=== PATIENT | male | born 1950 | race Caucasian/White ===

== ENCOUNTER → 2018-01-26 | Outpatient (REF) | payer MEDICARE ==
[2018-01-26 17:28] LABS: ATYPICAL LYMPH 1 % (0-5); BANDS 1 % (< 11); LYMPHOCYTES 6 % (16-52); MONOCYTES 3 % (0-8); NEUTROPHILS 89 % (35-75)
[2018-01-26 17:30] LABS: PLATELET ESTIMATE NORMAL (NORMAL)
== END ==
LOC: M LAB REF 16:46
DX: D72.829 Elevated white blood cell count, unspecified (principal)
CPT/HCPCS: 85007

== ENCOUNTER → 2018-01-29 | Outpatient (REF) | payer MEDICARE | LOC: M LAB REF 10:34 | DX: J18.9 Pneumonia, unspecified organism (principal) | CPT/HCPCS: 86140 ==

== ENCOUNTER → 2018-02-05 | Outpatient (REF) | payer MEDICARE ==
[2018-02-05 19:31] LABS: C REACTIVE PROTEIN QUANTITATIV 1.34 MG/DL (0.00-0.30)
== END ==
LOC: M LAB REF 17:17
DX: J18.9 Pneumonia, unspecified organism (principal)
CPT/HCPCS: 86140

== ENCOUNTER 2020-03-31 08:05 | Inpatient (IN) | payer MEDICARE ==
[~2020-03-31] VITALS: Ht 172.7 cm; Wt 57.2 kg
[~2020-03-31 08:05] MED LIST: BABY81CH PO; DIFL200T; VITAMIN B12; VITAMIN C; XOPENEX; ZITH500T
[2020-03-31] MEDS ORDERED: LISI-538 PO (08:23)
[2020-03-31] MEDS ORDERED: HYDR12.55 PO (08:23)
[2020-03-31] MEDS ORDERED: BREO1INH3 PO (08:29)
[2020-03-31] MEDS ORDERED: PROAAER10 INH (08:29)
[2020-03-31] MEDS ORDERED: ACETAMINOPHEN 325 MG TAB PO ONE (08:30)
[2020-03-31] MEDS ORDERED: methylPREDNISolone 125MG 2ML VIAL IV ONE (08:30)
[2020-03-31] MEDS ORDERED: NS 500 ML IV ONE (08:30)
[2020-03-31] MEDS ORDERED: IPRATROPIUM 0.5MG/ALBUTEROL 2.5MG INH SOL UD 3ML (DUONEB) NEB PRN (08:45)
[2020-03-31 09:08] LABS: BASO # 0.1 10^3/uL (0.0-0.2); BASO % 0.4 % (0.0-1.0); HEMATOCRIT 48.1 % (42.0-52.0); HEMOGLOBIN 15.4 g/dl (13.5-17.5); LYMPH # 0.4 10^3/uL (1.5-5.0); LYMPH % 1.8 % (24.0-44.0); MEAN CORPUSCULAR HEMOGLOBIN 30.4 pg (27.0-33.0); MEAN CORPUSCULAR VOLUME 94.9 fl (80.0-96.0); MONO # 1.2 10^3/uL (0.0-0.8); NEUTROPHILS # 22.3 10^3/uL (1.5-8.5); NEUTROPHILS % 92.3 % (36.0-66.0); PLATELET COUNT, AUTOMATED 464 10^3/uL (150-450); RED BLOOD COUNT 5.07 10^6/uL (4.30-6.10); WHITE BLOOD COUNT 24.2 10^3/uL (4.0-10.0)
[2020-03-31] MEDS ORDERED: PIPERACILLIN/TAZOBACTAM SOD 4.5 GM in D5W MINI-BAG PLUS 50 ML IV ONE (09:15)
[2020-03-31 09:24] LABS: INR 1.04; PROTHROMBIN TIME 13.8 SECONDS (12.5-14.3)
--- NOTE | 2020-03-31 09:41 | REPVR ---
PROCEDURE INFORMATION: Exam: XR Chest, 1 View Exam date and time: 03/31/2020 9:20 AM Age: 69 years old Clinical indication: Cough and dyspnea; Additional info: Dyspnea/cough TECHNIQUE: Imaging protocol: XR of the chest Views: 1 view. COMPARISON: No relevant prior studies available. FINDINGS: Lungs: The lungs are hyperinflated. There are areas of scarring at the lung bases and right apex. There appears to be some superimposed airspace opacity at the left base, suggesting pneumonia. Pleural space: Unremarkable. No pleural effusion. No pneumothorax. Heart/Mediastinum: Unremarkable. No cardiomegaly. Bones/joints: Unremarkable. IMPRESSION: Hyperinflation with apparent left basilar airspace opacity, suggesting pneumonia. Electronically signed by: Demetris Amado On 03/31/2020 09:41:05 AM
[2020-03-31] MEDS ORDERED: NS 1,000 ML IV ONE (09:45)
[2020-03-31 09:47] LABS: ALBUMIN 2.8 GM/DL (3.2-5.2); BILIRUBIN,DIRECT 0.4 MG/DL (0.0-0.2); THYROID STIMULATING HORMONE 0.634 uIU/ML (0.358-3.740); TOTAL PROTEIN 7.6 GM/DL (6.4-8.2)
[2020-03-31] MEDS ORDERED: ACETAMINOPHEN TAB 650MG DOSE (2X325MG) PO PRN (10:30)
[2020-03-31] MEDS ORDERED: EQL50TAB2 PO (10:34)
[2020-03-31] MEDS ORDERED: CALC500T38 PO (10:34)
[2020-03-31] MEDS ORDERED: POTA10PO PO (10:34)
[2020-03-31] MEDS ORDERED: SILD100T PO (10:34)
[2020-03-31] MEDS ORDERED: B-COSUB2 SL (10:34)
[2020-03-31] MEDS ORDERED: BREO1INH INH (10:34)
[2020-03-31] MEDS ORDERED: ASPI1CHW3 PO (10:34)
[2020-03-31] MEDS ORDERED: ASPIRIN 81 MG CHEW TABLET PO SCH (11:30)
[2020-03-31] MEDS: NS 1,000 ML IV SCH ×2 (12:00→18:22)
[2020-03-31] MEDS: cefTRIAXone SOD 1 GM in D5W MINI-BAG PLUS 50 ML IV SCH (13:06)
--- NOTE | 2020-03-31 13:56 | HPEPDOC ---
[facility] Medical History & Physical Date of Admission Mar 31, 2020 Date of Service: Mar 31, 2020 Attending Physician: Lou Lora MD History and Physical CHIEF COMPLAINT: Increased shortness of breath HISTORY OF PRESENT ILLNESS: Patient is a 69-year-old male with past medical history of stage IV lung cancer (diagnosed 2008), history of pneumonia, Crohn's disease, hypertension who presented to [facility] today for worsening increased shortness of breath. Per the patient his symptoms started in 03/31 with increased productive coughing of clear thick sputum, lethargy, chest pressure with name, increased shortness of breath. Denies chest pain radiating down the arms, described as dull, associated with increased shortness of breath. The patient states he felt similarly many years ago when he was diagnosed with pneumonia. He denies feeling feverish, diarrhea, nausea, vomiting, abdominal pain, recent illnesses, significant weight loss. The patient also admits to having been diagnosed with stage IV lung cancer in 2008 but denied one and treatment. He called his primary care provider's office but was unable to get in to see them today. The patient came to the emergency room to be further evaluated for his symptoms. Emergency room the prior patient's oxygen level was 84% on room air. His placed on 2 L nasal cannula. WBC showed to be 24,000, respiratory rate 22, heart rate 109, 100.3 fever, 94% on 2 L nasal cannula. Chest x-ray showed left lower lobe pneumonia. The patient was admitted for community acquired left lower lobe pneumonia, sepsis. REVIEW OF SYSTEMS: CONSTITUTIONAL: Denies unexplained weight gain or weight loss,night sweats EYES: Denies eye drainage, eye pain, visual changes, dry/irritated eye EARS, NOSE, MOUTH, THROAT: Denies ringing in ears, mouth sores, loose teeth, sore throat, facial numbness or pain NECK: Denies swollen glands CARDIOVASCULAR: Denies irregular heartbeat, racing heart,swelling of feet or legs, pain in legs with walking RESPIRATORY: Denies night sweats, oxygen at home, coughing up blood GASTROINTESTINAL: Denies abdominal pain, constipation, bloody stool, diarrhea, heartburn, nausea, vomiting GENITOURINARY: Denies painful urination, bloody urine, frequent urination, urgency, leaking urine, impotence MUSCULOSKELETAL: Denies joint pain, muscle pain, leg swelling INTEGUMENTARY: Denies rash, itching, new skin lesion, change in existing skin lesion, hair loss or increase, breast changes. NEUROLOGICAL: Denies headaches, dizziness, difficulty walking, numbness or tingling PSYCHIATRIC: Denies depression, anxiety, recurrent bad thoughts, mood swings, hallucinations PAST MEDICAL HISTORY: 1. Stage 4 lung cancer, opted not to get it treated in 2008 2. History of pneumonia 3. Crohn's disease 4. HTN PAST SURGICAL HISTORY: 1. Abdominal surgery for Crohn's disease FAMILY HISTORY: MotherCAD, at 94 years old Otherlung cancer, at 67 years old SOCIAL HISTORY: Patient was a one pack per day smoker for 30 years, quit in 1996. Denies alcohol use. Lives in senior citizen housing locally. He does not use a walker or cane. He was previously on hospice from when he was diagnosed with cancer in 2008 through August 2009. He was doing well so he was released from hospice care. Does have a primary care provider in the local community ALLERGIES: Please see below. HOME MEDICATIONS: Please see below. PHYSICAL EXAMINATION: VS: Please see below CONSTITUTIONAL: No acute distress, resting comfortably, AAO x 3 EYES: PERRLA, EOM intact HENT, MOUTH: Normocephalic, atraumatic, moist mucous membranes, NC in place NECK: SUPPLE, no JVD, no lymphadenopathy, no carotid bruit CV: Regular rate and rhythm, S1S2 normal, no murmurs/rubs/gallops RESPIRATORY: Clear to auscultation bilaterally, no rales/rhonchi/wheezes GI: BS positive in 4 quadrants, soft, nontender, nondistended, no rebound or guarding, no organomegaly : Deferred MUSCULOSKELETAL: Normal ROM. No cyanosis, clubbing, swelling, joint deformity, extremity edema INTEGUMENTARY: Intact, no rashes, no lesions, no erythema NEUROLOGIC: Cranial Nerves II-XII are intact, no focal deficits PSYCHIATRIC: Mood and affect are normal LABORATORY DATA: Please see below IMAGING: CXR: Hyperinflation with apparent left basilar airspace opacity, suggesting pneumonia. ASSESSMENT: 69-year-old male with past medical history of stage IV lung cancer (diagnosed 2008), history of pneumonia, Crohn's disease, hypertension admitted for community acquired left lower lobe pneumonia, sepsis. PLAN: 1. LLL community acquired pneumonia, sepsis -HR 109, RR 22, temp 100.3 F, 94% on 2 L NC (has at home PRN but does not use ever), WBC 24K -CXR above -BCx, sputum cx pending. daily labs -Doxycycline, ceftriaxone BID -Tele 2. Hx of Stage IV lung cancer, type unknown -Declined treatment in 2008 -Previously on hospice but released in 2009 -F/u with PCP, does not wish to change DNR/DNI status 3. Crohn's disease -Stable 4. HTN. -STable 5. DVT px -Enoxaparin DISPOSITION: Plan is discharge home when medically improved. PT/OT. Vital Signs Vital Signs Date Time Temp Pulse Resp B/P (MAP) Pulse Ox O2 Delivery O2 Flow Rate FiO2 03/31/20 12:15 71 19 128/63 (84) 97 Nasal Cannula 2.0 03/31/20 10:01 98.7 Laboratory Data Labs 24H Laboratory Tests 2 03/31/20 08:37: Immature Granulocyte % (Auto) 0.5, Neutrophils (%) (Auto) 92.3H, Lymphocytes (%) (Auto) 1.8L, Monocytes (%) (Auto) 5.0, Eosinophils (%) (Auto) 0.0, Basophils (%) (Auto) 0.4, Neutrophils # (Auto) 22.3H, Lymphocytes # (Auto) 0.4L, Monocytes # (Auto) 1.2H, Eosinophils # (Auto) 0.0, Basophils # (Auto) 0.1, Nucleated Red Blood Cells % (auto) 0.0, Prothrombin Time 13.8, Prothromb Time International Ratio 1.04, Total Bilirubin 1.0, Direct Bilirubin 0.4H, Aspartate Amino Transf (AST/SGOT) 16, Alanine Aminotransferase (ALT/SGPT) 21, Alkaline Phosphatase 114, C-Reactive Protein, Quantitative 26.00H, TE-Nzp-L-Type Natriuretic Peptide 567H, Total Protein 7.6, Albumin 2.8L, Albumin/Globulin Ratio 0.6, Thyroid Stimulating Hormone (TSH) 0.634 03/31/20 08:48: POC pH (Misc Panel) 7.380, POC Base Excess (Misc Panel) 6.0H, POC Saturated Percent O2 (Misc) 93L, POC pO2 (Misc Panel) 69.0L, POC pCO2 (Misc Panel) 53.1H, POC HCO3 (Misc Panel) 31.4H, POC Total CO2 (Misc Panel) 33.0H 03/31/20 08:49: POC Total CO2 (Misc Panel) 29.0H, POC Glucose (Misc Panel) 147H, POC Sodium (Misc Panel) 140, POC Potassium (Misc Panel) 3.4L, POC Chloride (Misc Panel) 94L, POC Blood Urea Nitrogen (Misc Panel 16, POC Ionized Calcium (Misc Panel) 4.6, POC Lactate (Misc Panel) 1.79, POC Creatinine (Misc Panel) 0.9, POC Hematocrit (Misc Panel) 51.0 03/31/20 08:55: POC Troponin I (Misc) 0.00 03/31/20 11:19: Troponin I < 0.02 CBC/BMP Laboratory Tests 03/31/20 08:37 Microbiology Microbiology 03/31/20 Gram Stain - Final, Resulted 03/31/20 Sputum Culture, Resulted Pending 03/31/20 Blood Culture, Received Pending 03/31/20 Blood Culture, Received Pending Home Medications Scheduled Ascorbate Calcium (Vitamin C) 500 Mg Tablet, 500 MG PO DAILY Aspirin (Aspirin) 81 Mg Tab.chew, 81 MG PO 2XW DOES NOT TAKE ON SPECIFIC DAYS Fluticasone/Vilanterol (Breo Ellipta 100-25 Mcg INH) 1 Each Blst.w.dev, 1 PUFF INH DAILY Hydrochlorothiazide (Hydrochlorothiazide) 12.5 Mg Tablet, 12.5 MG PO DAILY Lisinopril (Lisinopril) 20 Mg Tablet, 20 MG PO BID Potassium Chloride (Potassium Chloride Powder) 20 Meq Packet, 20 MEQ PO DAILY Vit B2/Niacin/B6/B12/Dexpanth (B Complex Sublingual Liquid) 59 Ml Liquid, 1 DOSE SL BID Vitamin B Complex (Vitamin B Complex) 1 Each Tablet, 1 TAB PO DAILY Scheduled PRN Albuterol Sulfate (Proair Hfa) 8.5 Gm Hfa.aer.ad, 2 PUFF INH Q6H PRN for SHORTNESS OF BREATH Sildenafil Citrate (Sildenafil Citrate) 100 Mg Tablet, 0.5-1 TAB PO DAILY PRN for ERECTILE DYSFUNCTION Allergies Coded Allergies: No Known Allergies (Unverified , 03/31/20) A-FIB/CHADSVASC A-FIB History Current/History of A-Fib/PAF?: No Current PO Anticoag Therapy: No Age/Risk Factor Scoring CHADSVASC: CHADSVASC Response (Comments) Value Age Risk Factor Age 65-74 years old 1 Gender Risk Factor Male 0 Hx of CHF No 0 Hx of HTN Yes 1 Hx of Stroke/TIA/or VTE No 0 Hx of Diabetes No 0 Hx of Vascular Disease No 0 Total 2 Treatment Treatment ordered: Other Other anticoagulant ordered: enoxaparin Lou Lora MD Mar 31, 2020 13:56
[2020-03-31 16:00] VITALS: BP 160/79
[2020-03-31 16:13] VITALS: BP 160/79
[2020-03-31] MEDS: DOXYCYCLINE HYCLATE 100MG TABLET PO SCH ×2 (16:47→20:14)
[2020-03-31] MEDS: lisinopriL 20 MG TAB PO SCH ×2 (16:47→20:16)
[2020-03-31] MEDS: ASCORBIC ACID 500 MG TAB PO SCH (16:48)
[2020-03-31] MEDS: hydroCHLOROthiazide 12.5 MG CAPSULE PO SCH (16:48)
[2020-03-31] MEDS: ENOXAPARIN 40MG/0.4ML SYRINGE (J1650 PER 10MG) SC SCH (16:49)
[2020-03-31] MEDS: POTASSIUM CHL PWD 20 MEQ PACKET PO SCH (16:53)
[2020-03-31 19:39] LABS: APPEARANCE, URINE CLOUDY (CLEAR); BACTERIA, URINE AUTO NEGATIVE (NEGATIVE); BILIRUBIN, URINE AUTO NEGATIVE (NEGATIVE); BLOOD, URINE BLOOD NEGATIVE (NEGATIVE); COLOR, URINE YELLOW (YELLOW); GLUCOSE, URINE (UA) AUTO 2+ mg/dL (NEGATIVE); KETONE, URINE AUTO 1+ mg/dL (NEGATIVE); LEUKOCYTE ESTERASE, URINE AUTO NEGATIVE (NEGATIVE); MUCUS, URINE SMALL (NEGATIVE); NITRITE, URINE AUTO NEGATIVE (NEGATIVE); PROTEIN, URINE AUTO 2+ mg/dL (NEGATIVE); RBC, URINE AUTO 3 /HPF (0-3); SPECIFIC GRAVITY URINE AUTO 1.036 (1.002-1.035); SQUAMOUS EPITHELIAL CELL UR AU 0 /HPF (0-6); UROBILINOGEN, URINE AUTO 0.2 mg/dL (0.0-2.0); WBC, URINE AUTO 3 /HPF (0-3)
[2020-03-31 22:00] VITALS: BP 143/76
[2020-04-01] MEDS ORDERED: IPRATROPIUM 0.5MG/ALBUTEROL 2.5MG INH SOL UD 3ML (DUONEB) NEB PRN (01:15)
[2020-04-01] MEDS: NS 1,000 ML IV SCH ×2 (04:13→15:41)
--- NOTE | 2020-04-01 05:29 | ECGEPIP ---
[facility] - ED Test Date: 2020-03-31 Pat Name: WANDER GORMAN Department: Room: [facility] Gender: Male Lpn Cma: CHRISTOPHER : 1950 Requested By: GENESIS SWEET Order Number: [id number] Reading MD: Tramaine Benedict Measurements Intervals [place] Rate: 109 P: 87 IA: 157 QRS: 8 QRSD: 157 T: 140 QT: 349 QTc: 470 Interpretive Statements SINUS TACHYCARDIA LEFT BUNDLE BRANCH BLOCK NO PRIORS FOR COMPARISON Electronically Signed on 04-01-2020 5:29:36 EDT by Tramaine Benedict
[2020-04-01 06:13] LABS: HEMATOCRIT 36.2 % (42.0-52.0); HEMOGLOBIN 11.4 g/dl (13.5-17.5); MEAN CORPUSCULAR HEMOGLOBIN 30.3 pg (27.0-33.0); MEAN CORPUSCULAR HGB CONC 31.5 g/dl (32.0-36.5); MEAN CORPUSCULAR VOLUME 96.3 fl (80.0-96.0); PLATELET COUNT, AUTOMATED 334 10^3/uL (150-450); RED BLOOD COUNT 3.76 10^6/uL (4.30-6.10)
[2020-04-01 06:40] LABS: ALBUMIN 1.8 GM/DL (3.2-5.2); ALT/SGPT 15 U/L (12-78); BILIRUBIN,TOTAL 0.2 MG/DL (0.2-1.0); BLOOD UREA NITROGEN 16 MG/DL (7-18); CALCIUM LEVEL 8.4 MG/DL (8.8-10.2); CARBON DIOXIDE LEVEL 33 MEQ/L (21-32); CHLORIDE LEVEL 106 MEQ/L (98-107); CREATININE FOR GFR 0.75 MG/DL (0.70-1.30); GLOMERULAR FILTRATION RATE > 60.0 (>49); GLUCOSE, FASTING 176 MG/DL (70-100); POTASSIUM SERUM 3.6 MEQ/L (3.5-5.1); SODIUM LEVEL 144 MEQ/L (136-145); TOTAL PROTEIN 5.3 GM/DL (6.4-8.2)
[2020-04-01] MEDS: ENOXAPARIN 40MG/0.4ML SYRINGE (J1650 PER 10MG) SC SCH (09:50)
[2020-04-01] MEDS: POTASSIUM CHL PWD 20 MEQ PACKET PO SCH (09:50)
[2020-04-01] MEDS: hydroCHLOROthiazide 12.5 MG CAPSULE PO SCH (09:51)
[2020-04-01] MEDS: ASCORBIC ACID 500 MG TAB PO SCH (09:51)
[2020-04-01] MEDS: lisinopriL 20 MG TAB PO SCH ×2 (09:53→21:26)
[2020-04-01] MEDS: DOXYCYCLINE HYCLATE 100MG TABLET PO SCH ×2 (09:53→21:26)
[2020-04-01] MEDS: cefTRIAXone SOD 1 GM in D5W MINI-BAG PLUS 50 ML IV SCH (11:55)
[2020-04-01 14:00] VITALS: BP 145/72
--- NOTE | 2020-04-01 17:21 | IPNPDOC ---
Date Seen The patient was seen on 04/01/20. Progress Note SUBJECTIVE: Speech therapy recommended soft diet, thin liquids. Was assessed by PT and was safe to return home, not recommending rehab. WBC mildly improved, awaiting sputum cx. Denies chest pain, n/v/d, fevers, chills, increased SOB. OBJECTIVE: PHYSICAL EXAMINATION: VS: Please see below CONSTITUTIONAL: No acute distress, resting comfortably, AAO x 3 EYES: PERRLA, EOM intact HENT, MOUTH: Normocephalic, atraumatic, moist mucous membranes, NC in place NECK: SUPPLE, no JVD, no lymphadenopathy, no carotid bruit CV: Regular rate and rhythm, S1S2 normal, no murmurs/rubs/gallops RESPIRATORY: Clear to auscultation bilaterally, no rales/rhonchi/wheezes GI: BS positive in 4 quadrants, soft, nontender, nondistended, no rebound or guarding, no organomegaly : Deferred MUSCULOSKELETAL: Normal ROM. No cyanosis, clubbing, swelling, joint deformity, extremity edema INTEGUMENTARY: Intact, no rashes, no lesions, no erythema NEUROLOGIC: Cranial Nerves II-XII are intact, no focal deficits PSYCHIATRIC: Mood and affect are normal LABORATORY DATA: Please see below MICROBIOLOGY: BCx NG at 24 H x 2 sets Sputum Cx pending IMAGING: CXR: Hyperinflation with apparent left basilar airspace opacity, suggesting pneumonia. ASSESSMENT: 69-year-old male with past medical history of stage IV lung cancer (diagnosed 2008), history of pneumonia, Crohn's disease, hypertension admitted for community acquired left lower lobe pneumonia, sepsis. PLAN: LLL community acquired pneumonia, resolved sepsis -91% on 1 L NC (has at home PRN but rarely uses), WBC 14K -CXR above -BCx NG at 24H, sputum cx pending. -F/u daily labs -Doxycycline, ceftriaxone (Day 2) Dysphagia 2/2 to unknown cause -Speech evaluated today, recommending soft diet, thin liquids -Barium swallow for 04/03/20. Hx of Stage IV lung cancer, type unknown -Declined treatment in 2008 -Previously on hospice but released in 2009 -F/u with PCP, does not wish to change DNR/DNI status Crohn's disease -Stable HTN. -STable DVT px -Enoxaparin DISPOSITION: Currently inpatient status. PT/OT: cleared safe for d/c home when medically safe to return home. VS, I&O, 24H, Marinobone Vital Signs/I&O Vital Signs Date Time Temp Pulse Resp B/P (MAP) Pulse Ox O2 Delivery O2 Flow Rate FiO2 04/01/20 09:53 146/84 04/01/20 09:15 1.0 03/31/20 22:00 96.4 71 18 91 Nasal Cannula I&O- Last 24 Hours up to 6 AM 04/01/20 06:00 Intake Total 2830 ml Output Total 0 ml Balance 2830 ml Laboratory Data 24H LABS Laboratory Tests 2 03/31/20 19:17: Urine Color YELLOW, Urine Appearance CLOUDYH, Urine pH 5.0, Urine Specific [place] 1.036, Urine Protein 2+H, Urine Glucose (Auto)(UA) 2+H, Urine Ketones (Auto) 1+H, Urine Blood NEGATIVE, Urine Nitrite NEGATIVE, Urine Bilirubin NEGATIVE, Urine Urobilinogen 0.2, Urine Leukocyte Esterase (Auto) NEGATIVE, Urine WBC (Auto) 3, Urine RBC (Auto) 3, Urine Hyaline Casts (Auto) 1, Urine Bacteria (Auto) NEGATIVE, Urine Squamous Epithelial Cells 0, Urine Mucus (Auto) SMALL, Urine Sperm (Auto) 04/01/20 05:52: Nucleated Red Blood Cells % (auto) 0.0, Anion Gap 5L, Glomerular Filtration Rate > 60.0, Calcium Level 8.4L, Total Bilirubin 0.2#, Aspartate Amino Transf (AST/SGOT) 10, Alanine Aminotransferase (ALT/SGPT) 15, Alkaline Phosphatase 77, Total Protein 5.3#L, Albumin 1.8#L, Albumin/Globulin Ratio 0.5 CBC/BMP Laboratory Tests 04/01/20 05:52 Microbiology Microbiology 03/31/20 Urine Culture, Received Pending 03/31/20 Gram Stain - Final, Resulted 03/31/20 Sputum Culture, Resulted Pending 03/31/20 Blood Culture - Preliminary, Resulted No growth after 24 hours . All specim... 03/31/20 Blood Culture - Preliminary, Resulted No growth after 24 hours . All specim... Current Medications Current Medications Medications (Trade) Dose Ordered Sig/Tyra Route PRN Reason Start Time Stop Time Status Last Admin Dose Admin Acetaminophen (Tylenol Tab) 650 mg Q4H PRN PO PAIN OR FEVER 10/20/20 10:30 Albuterol/ Ipratropium (Duoneb (Ipr 0.5mg/Alb 2.5mg)) 3 ml Q20M PRN NEB SHORTNESS OF BREATH 03/31/20 08:45 04/01/20 01:05 DC 03/31/20 09:06 Albuterol/ Ipratropium (Duoneb (Ipr 0.5mg/Alb 2.5mg)) 3 ml Q4HP PRN NEB SOB/WHEEZING 04/01/20 01:15 Ascorbic Acid (Vitamin C) 500 mg DAILY PO 03/31/20 09:00 04/01/20 09:51 Aspirin (Aspirin Chewable) 81 mg 2XW PO 03/31/20 11:30 03/31/20 12:15 DC Ceftriaxone Sodium 1 gm/ Dextrose 50 ml @ 100 mls/hr Q24H IV 03/31/20 12:00 04/01/20 11:55 Doxycycline Hyclate (Vibramycin) 100 mg BID PO 03/31/20 09:00 04/01/20 09:53 Enoxaparin Sodium (Lovenox) 40 mg DAILY SC 03/31/20 09:00 04/01/20 09:50 Home Med (Med Rec Complete!) ASDIRECTED XX 03/31/20 10:45 03/31/20 10:37 DC Hydrochlorothiazide (Hydrodiuril) 12.5 mg DAILY PO 03/31/20 09:00 04/01/20 09:51 Lisinopril (Prinivil) 20 mg BID PO 03/31/20 09:00 04/01/20 09:53 Potassium Chloride (K-Kayla 20 Meq Powder Packet) 20 meq DAILY PO 03/31/20 09:00 04/01/20 09:50 Sodium Chloride 1,000 ml @ 100 mls/hr Q10H IV 03/31/20 10:30 04/01/20 15:41 Allergies Coded Allergies: No Known Allergies (Unverified , 03/31/20) Lou Lora MD Apr 01, 2020 17:21
[2020-04-01 22:00] VITALS: BP 147/73
[2020-04-02] MEDS: NS 1,000 ML IV SCH (01:20)
[2020-04-02 05:58] LABS: HEMATOCRIT 43.1 % (42.0-52.0); HEMOGLOBIN 13.3 g/dl (13.5-17.5); MEAN CORPUSCULAR HEMOGLOBIN 30.1 pg (27.0-33.0); MEAN CORPUSCULAR HGB CONC 30.9 g/dl (32.0-36.5); MEAN CORPUSCULAR VOLUME 97.5 fl (80.0-96.0); RED BLOOD COUNT 4.42 10^6/uL (4.30-6.10); WHITE BLOOD COUNT 14.7 10^3/uL (4.0-10.0)
[2020-04-02 06:00] VITALS: BP 130/81
[2020-04-02 06:03] LABS: PLATELET COUNT, AUTOMATED 451 10^3/uL (150-450)
[2020-04-02 06:30] LABS: ALBUMIN 2.1 GM/DL (3.2-5.2); ALT/SGPT 22 U/L (12-78); BILIRUBIN,TOTAL 0.3 MG/DL (0.2-1.0); BLOOD UREA NITROGEN 14 MG/DL (7-18); CALCIUM LEVEL 8.5 MG/DL (8.8-10.2); CARBON DIOXIDE LEVEL 35 MEQ/L (21-32); CHLORIDE LEVEL 108 MEQ/L (98-107); CREATININE FOR GFR 0.78 MG/DL (0.70-1.30); GLOMERULAR FILTRATION RATE > 60.0 (>49); GLUCOSE, FASTING 98 MG/DL (70-100); POTASSIUM SERUM 3.5 MEQ/L (3.5-5.1); SODIUM LEVEL 148 MEQ/L (136-145)
[2020-04-02] MEDS ORDERED: LevoFLOXacin 500 MG TABLET PO SCH (08:30)
[2020-04-02] MEDS: hydroCHLOROthiazide 12.5 MG CAPSULE PO SCH (10:06)
[2020-04-02] MEDS: ASCORBIC ACID 500 MG TAB PO SCH (10:07)
[2020-04-02] MEDS: POTASSIUM CHL PWD 20 MEQ PACKET PO SCH (10:07)
[2020-04-02] MEDS: LevoFLOXacin 750 MG TABLET PO SCH (10:07)
[2020-04-02] MEDS: lisinopriL 20 MG TAB PO SCH ×2 (10:08→20:06)
[2020-04-02] MEDS: ENOXAPARIN 40MG/0.4ML SYRINGE (J1650 PER 10MG) SC SCH ×2 (10:08→10:13)
[2020-04-02 14:00] VITALS: BP 130/73
--- NOTE | 2020-04-02 17:00 | IPNPDOC ---
Date Seen The patient was seen on 04/02/20. Progress Note SUBJECTIVE: Tolerating soft diet, thin liquids well. Does not want cookie swallow 04/03. Awaiting sputum cx still. WBC mildly increased. Patient requesting Hospice care. Denies chest pain, n/v/d, fevers, chills, increased SOB. OBJECTIVE: PHYSICAL EXAMINATION: VS: Please see below CONSTITUTIONAL: Appears more SOB today but not in resp distress. At times tearful, AAO x 3 EYES: PERRLA, EOM intact HENT, MOUTH: Normocephalic, atraumatic, moist mucous membranes, NC in place NECK: SUPPLE, no JVD, no lymphadenopathy, no carotid bruit CV: Regular rate and rhythm, S1S2 normal, no murmurs/rubs/gallops RESPIRATORY: Clear to auscultation bilaterally, no rales/rhonchi/wheezes GI: BS positive in 4 quadrants, soft, nontender, nondistended, no rebound or guarding, no organomegaly : Deferred MUSCULOSKELETAL: Normal ROM. No cyanosis, clubbing, swelling, joint deformity, extremity edema INTEGUMENTARY: Intact, no rashes, no lesions, no erythema NEUROLOGIC: Cranial Nerves II-XII are intact, no focal deficits PSYCHIATRIC: Depressed mood LABORATORY DATA: Please see below MICROBIOLOGY: BCx NG at 24 H x 2 sets Sputum Cx: Organism 1 RAOULTELLA PLANTICOLA QUANTITY OF GROWTH FEW Organism 2 STREPTOCOCCUS PNEUMONIAE QUANTITY OF GROWTH HEAVY IMAGING: CXR: Hyperinflation with apparent left basilar airspace opacity, suggesting pneumonia. ASSESSMENT: 69-year-old male with past medical history of stage IV lung cancer (diagnosed 2008), history of pneumonia, Crohn's disease, hypertension admitted for community acquired left lower lobe pneumonia, sepsis. PLAN: LLL community acquired pneumonia, resolved sepsis -88-91% on 1 L NC (has at home PRN but rarely uses), WBC slightly worsened at 14.7 -BCx NG at 24H, sputum cx above, sensitivities to strep pneumoniae pending -F/u daily labs -D/c Doxycycline, ceftriaxone. Started levofloxacin for now, october when sensitivities for strep pneumo arrive. Dysphagia 2/2 to unknown cause -Speech evaluated today, recommending soft diet, thin liquids -Refusing barium swallow -Crush pills Hx of Stage IV lung cancer, type unknown -Declined treatment in 2008 -Previously on hospice but released in 2009 -F/u with PCP, does not wish to change DNR/DNI status -Requesting Hospice care Crohn's disease -Stable HTN. -STable DVT px -Enoxaparin DISPOSITION: Currently inpatient status. PT/OT: cleared safe for d/c home when medically safe to return home. REquesting Hospice Care. Plan is hopefully d/c home with Hospice. VS, I&O, 24H, Fishbone Vital Signs/I&O Vital Signs Date Time Temp Pulse Resp B/P (MAP) Pulse Ox O2 Delivery O2 Flow Rate FiO2 04/02/20 14:00 98.5 100 24 130/73 (92) 88 Nasal Cannula 1.0 I&O- Last 24 Hours up to 6 AM 04/02/20 06:00 Intake Total 4010 ml Output Total 400 ml Balance 3610 ml Laboratory Data 24H LABS Laboratory Tests 2 04/02/20 05:48: Nucleated Red Blood Cells % (auto) 0.0, Anion Gap 5L, Glomerular Filtration Rate > 60.0, Calcium Level 8.5L, Total Bilirubin 0.3, Aspartate Amino Transf (AST/SGOT) 16, Alanine Aminotransferase (ALT/SGPT) 22, Alkaline Phosphatase 89, Total Protein 6.0L, Albumin 2.1L, Albumin/Globulin Ratio 0.5 04/02/20 06:52: Lab Scanned Report Miscellaneous Lab CBC/BMP Laboratory Tests 04/02/20 05:48 Microbiology Microbiology 03/31/20 Urine Culture - Final, Complete 03/31/20 Gram Stain - Final, Resulted 03/31/20 Sputum Culture - Preliminary, Resulted Raoultella [place] Streptococcus Pneumoniae 03/31/20 Blood Culture - Preliminary, Resulted No Growth after 48 hours. All Specime... 03/31/20 Blood Culture - Preliminary, Resulted No Growth after 48 hours. All Specime... Current Medications Current Medications Medications (Trade) Dose Ordered Sig/Tyra Route PRN Reason Start Time Stop Time Status Last Admin Dose Admin Acetaminophen (Tylenol Tab) 650 mg Q4H PRN PO PAIN OR FEVER 03/31/20 10:30 Albuterol/ Ipratropium (Duoneb (Ipr 0.5mg/Alb 2.5mg)) 3 ml Q20M PRN NEB SHORTNESS OF BREATH 03/31/20 08:45 04/01/20 01:05 DC 03/31/20 09:06 Albuterol/ Ipratropium (Duoneb (Ipr 0.5mg/Alb 2.5mg)) 3 ml Q4HP PRN NEB SOB/WHEEZING 04/01/20 01:15 Ascorbic Acid (Vitamin C) 500 mg DAILY PO 03/31/20 09:00 04/02/20 10:07 Aspirin (Aspirin Chewable) 81 mg 2XW PO 03/31/20 11:30 03/31/20 12:15 DC Ceftriaxone Sodium 1 gm/ Dextrose 50 ml @ 100 mls/hr Q24H IV 03/31/20 12:00 04/02/20 08:31 DC 04/01/20 11:55 Doxycycline Hyclate (Vibramycin) 100 mg BID PO 03/31/20 09:00 04/02/20 08:31 DC 04/01/20 21:26 Enoxaparin Sodium (Lovenox) 40 mg DAILY SC 03/31/20 09:00 04/01/20 09:50 Home Med (Med Rec Complete!) ASDIRECTED XX 03/31/20 10:45 03/31/20 10:37 DC Hydrochlorothiazide (Hydrodiuril) 12.5 mg DAILY PO 03/31/20 09:00 04/02/20 10:06 Levofloxacin (Levaquin) 500 mg DAILY@06 PO 04/02/20 08:30 04/02/20 08:49 DC Levofloxacin (Levaquin) 750 mg DAILY@06 PO 04/02/20 06:00 04/02/20 10:07 Lisinopril (Prinivil) 20 mg BID PO 03/31/20 09:00 04/02/20 10:08 Potassium Chloride (K-Kayla 20 Meq Powder Packet) 20 meq DAILY PO 03/31/20 09:00 04/02/20 10:07 Sodium Chloride 1,000 ml @ 100 mls/hr Q10H IV 03/31/20 10:30 04/02/20 08:23 DC 04/02/20 01:20 Allergies Coded Allergies: No Known Allergies (Unverified , 03/31/20) Lou Lora MD Apr 02, 2020 17:00
[2020-04-02 22:00] VITALS: BP 155/85
[2020-04-03] MEDS: LevoFLOXacin 750 MG TABLET PO SCH (05:45)
[2020-04-03 06:00] VITALS: BP 153/84
[2020-04-03 06:13] LABS: HEMATOCRIT 41.6 % (42.0-52.0); HEMOGLOBIN 12.8 g/dl (13.5-17.5); MEAN CORPUSCULAR HEMOGLOBIN 30.5 pg (27.0-33.0); MEAN CORPUSCULAR HGB CONC 30.8 g/dl (32.0-36.5); PLATELET COUNT, AUTOMATED 401 10^3/uL (150-450)
[2020-04-03 06:34] LABS: ALBUMIN 2.3 GM/DL (3.2-5.2); ALT/SGPT 22 U/L (12-78); BILIRUBIN,TOTAL 0.4 MG/DL (0.2-1.0); BLOOD UREA NITROGEN 9 MG/DL (7-18); CALCIUM LEVEL 8.6 MG/DL (8.8-10.2); CARBON DIOXIDE LEVEL 39 MEQ/L (21-32); CHLORIDE LEVEL 102 MEQ/L (98-107); GLOMERULAR FILTRATION RATE > 60.0 (>49); GLUCOSE, FASTING 82 MG/DL (70-100); POTASSIUM SERUM 3.7 MEQ/L (3.5-5.1); SODIUM LEVEL 145 MEQ/L (136-145); TOTAL PROTEIN 5.9 GM/DL (6.4-8.2)
--- NOTE | 2020-04-03 07:59 | ECGEPIP ---
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 Left bundle branch block Slower rate with less marked repolarization abnormality from earlier the same day Electronically Signed on 04-03-2020 7:59:29 EDT by Yared Cardenas
[2020-04-03] MEDS ORDERED: LEVO750T13 PO (08:28)
[2020-04-03] MEDS: ENOXAPARIN 40MG/0.4ML SYRINGE (J1650 PER 10MG) SC SCH (08:56)
[2020-04-03 08:57] VITALS: BP 169/96
[2020-04-03] MEDS: POTASSIUM CHL PWD 20 MEQ PACKET PO SCH (08:57)
[2020-04-03] MEDS: lisinopriL 20 MG TAB PO SCH (08:57)
[2020-04-03] MEDS: ASCORBIC ACID 500 MG TAB PO SCH (08:57)
[2020-04-03] MEDS: hydroCHLOROthiazide 12.5 MG CAPSULE PO SCH (08:57)
--- NOTE | 2020-04-03 17:49 | DS.PDOC ---
Discharge Summary General Date of Admission Mar 31, 2020 at 10:19 Date of Discharge 04/03/20 Attending Physician: Lou Lora MD Discharge Summary HISTORY OF PRESENT ILLNESS: Patient is a 69-year-old male with past medical history of stage IV lung cancer (diagnosed 2008), history of pneumonia, Crohn's disease, hypertension who presented to [facility] today for worsening increased shortness of breath. Per the patient his symptoms started in 03/31 with increased productive coughing of clear thick sputum, lethargy, chest pressure with name, increased shortness of breath. Denies chest pain radiating down the arms, described as dull, associated with increased shortness of breath. The patient states he felt similarly many years ago when he was diagnosed with pneumonia. He denies feeling feverish, diarrhea, nausea, vomiting, abdominal pain, recent illnesses, significant weight loss. The patient also admits to having been diagnosed with stage IV lung cancer in 2008 but denied one and treatment. He called his primary care provider's office but was unable to get in to see them today. The patient came to the emergency room to be further evaluated for his sy mptoms. Emergency room the prior patient's oxygen level was 84% on room air. His placed on 2 L nasal cannula. WBC showed to be 24,000, respiratory rate 22, heart rate 109, 100.3 fever, 94% on 2 L nasal cannula. Chest x-ray showed left lower lobe pneumonia. The patient was admitted for community acquired left lower lobe pneumonia, sepsis. HOSPITAL COURSE: The patient was continued on CAP treatment CA: However, it was noted that his WBC increased. Culture later came back growing 2 different organisms 1 which was majority of strep pneumonia. WBC later improved to 11,000, he remained 90% on 2 L nasal cannula. The patient had home oxygen as needed for his lung cancer previously but rarely used it. Blood cultures showed to be no growth. He had a swelling evaluation which recommended a soft diet with thin liquids. He did not wish to proceed further with a cookie swallow. The patient wanted to follow-up with hospice as outpatient. He was given the information to do so. By 04/03/2020 the patient appeared to be much improved and was to continue with an oral levofloxacin for 6 additional days. He has follow-up with both his primary care provider and hospice after discharge. Portable oxygen was arranged by social work. The patient denied chest pain, increased shortness of breath, nausea, vomiting, fevers, chills at the time of discharge. REVIEW OF SYSTEMS: Neg except mentioned above PAST MEDICAL HISTORY: 1. Stage 4 lung cancer, opted not to get it treated in 2008 2. History of pneumonia 3. Crohn's disease 4. HTN PAST SURGICAL HISTORY: 1. Abdominal surgery for Crohn's disease FAMILY HISTORY: MotherCAD, at 94 years old Otherlung cancer, at 67 years old SOCIAL HISTORY: Patient was a one pack per day smoker for 30 years, quit in 1996. Denies alcohol use. Lives in senior citizen housing locally. He does not use a walker or cane. He was previously on hospice from when he was diagnosed with cancer in 2008 through August 2009. He was doing well so he was released from hospice care. Does have a primary care provider in the local community ALLERGIES: Please see below. DISCHARGE MEDICATIONS: Please see below. PHYSICAL EXAMINATION: VS: Please see below CONSTITUTIONAL: In NAD, sitting up at edge of bed, AAO x 3 EYES: PERRLA, EOM intact HENT, MOUTH: Normocephalic, atraumatic, moist mucous membranes, NC in place NECK: SUPPLE, no JVD, no lymphadenopathy, no carotid bruit CV: Regular rate and rhythm, S1S2 normal, no murmurs/rubs/gallops RESPIRATORY: Clear to auscultation bilaterally, no rales/rhonchi/wheezes GI: BS positive in 4 quadrants, soft, nontender, nondistended, no rebound or guarding, no organomegaly : Deferred MUSCULOSKELETAL: Normal ROM. No cyanosis, clubbing, swelling, joint deformity, extremity edema INTEGUMENTARY: Intact, no rashes, no lesions, no erythema NEUROLOGIC: Cranial Nerves II-XII are intact, no focal deficits PSYCHIATRIC: Mood and affect appropriate LABORATORY DATA: Please see below MICROBIOLOGY: BCx NG at 24 H x 2 sets Sputum Cx: Organism 1 RAOULTELLA PLANTICOLA QUANTITY OF GROWTH FEW Organism 2 STREPTOCOCCUS PNEUMONIAE QUANTITY OF GROWTH HEAVY IMAGING: CXR: Hyperinflation with apparent left basilar airspace opacity, suggesting pneumonia. ASSESSMENT: 69-year-old male with past medical history of stage IV lung cancer (diagnosed 2008), history of pneumonia, Crohn's disease, hypertension admitted for community acquired left lower lobe pneumonia, sepsis. PLAN: LLL community acquired pneumonia, resolved sepsis -88-91% on 2 L NC ATC required for discharge, portable O2 arranged. WBC wnl -BCx NG at 24H, sputum cx above -Patient to continue with 6 additional days of levofloxacin after discharge. Dysphagia 2/2 to unknown cause -Speech evaluated today, recommending soft diet, thin liquids -Refusing barium swallow -Crush pills -F/u with PCP Hx of Stage IV lung cancer, type unknown -Declined treatment in 2008 -Previously on hospice but released in 2009 -F/u with PCP, does not wish to change DNR/DNI status -Hospice to evaluate patient o/p Crohn's disease -Stable HTN. -STable DISPOSITION: D/nicole home with f/u with hospice, PCP TIME SPENT ON DISCHARGE: Greater than 30 minutes. Vital Signs/I&Os Vital Signs Date Time Temp Pulse Resp B/P (MAP) Pulse Ox O2 Delivery O2 Flow Rate FiO2 04/03/20 09:00 2.0 04/03/20 08:57 169/96 04/03/20 06:00 97.3 81 22 90 Nasal Cannula I&O- Last 24 Hours up to 6 AM 04/03/20 06:00 Intake Total 1620 ml Output Total 800 ml Balance 820 ml Laboratory Data Labs 24H Laboratory Tests 2 04/03/20 05:50: Nucleated Red Blood Cells % (auto) 0.0, Anion Gap 4L, Glomerular Filtration Rate > 60.0, Calcium Level 8.6L, Total Bilirubin 0.4, Aspartate Amino Transf (AST/SGOT) 17, Alanine Aminotransferase (ALT/SGPT) 22, Alkaline Phosphatase 79, Total Protein 5.9L, Albumin 2.3L, Albumin/Globulin Ratio 0.6 CBC/BMP Laboratory Tests 04/03/20 05:50 Microbiology Microbiology 03/31/20 Urine Culture - Final, Complete 03/31/20 Gram Stain - Final, Complete 03/31/20 Sputum Culture - Final, Complete Raoultella Planticola Streptococcus Pneumoniae 03/31/20 Blood Culture - Preliminary, Resulted No Growth after 72 hours. All specime... 03/31/20 Blood Culture - Preliminary, Resulted No Growth after 72 hours. All specime... Discharge Medications Scheduled Ascorbate Calcium (Vitamin C) 500 Mg Tablet, 500 MG PO DAILY, (Reported) Aspirin (Aspirin) 81 Mg Tab.chew, 81 MG PO 2XW, (Reported) DOES NOT TAKE ON SPECIFIC DAYS Fluticasone/Vilanterol (Breo Ellipta 100-25 Mcg INH) 1 Each Blst.w.dev, 1 PUFF INH DAILY, (Reported) Hydrochlorothiazide (Hydrochlorothiazide) 12.5 Mg Tablet, 12.5 MG PO DAILY, (Reported) Levofloxacin (Levofloxacin) 750 Mg Tablet, 750 MG PO DAILY@06 Lisinopril (Lisinopril) 20 Mg Tablet, 20 MG PO BID, (Reported) Potassium Chloride (Potassium Chloride Powder) 20 Meq Packet, 20 MEQ PO DAILY, (Reported) Vit B2/Niacin/B6/B12/Dexpanth (B Complex Sublingual Liquid) 59 Ml Liquid, 1 DOSE SL BID, (Reported) Vitamin B Complex (Vitamin B Complex) 1 Each Tablet, 1 TAB PO DAILY, (Reported) Scheduled PRN Albuterol Sulfate (Proair Hfa) 8.5 Gm Hfa.aer.ad, 2 PUFF INH Q6H PRN for SHORTNESS OF BREATH, (Reported) Sildenafil Citrate (Sildenafil Citrate) 100 Mg Tablet, 0.5-1 TAB PO DAILY PRN for ERECTILE DYSFUNCTION, (Reported) Allergies Coded Allergies: No Known Allergies (Unverified , 03/31/20) Lou Lora MD Apr 03, 2020 17:49
== END 2020-04-03 16:05 | disposition home or self-care (01) | DRG 871 ==
LOC: M ED 08:05 → EDBD 08:05 → M ED INP 10:19 → M MSPAV 16:06
PROVIDERS: ADMIT Internal Medicine; ATTEND Internal Medicine
DX: A41.9 Sepsis, unspecified organism (principal); J13 Pneumonia due to Streptococcus pneumoniae; K50.90 Crohn's disease, unspecified, without complications; I10 Essential (primary) hypertension; R13.10 Dysphagia, unspecified; Z85.118 Personal history of other malignant neoplasm of bronchus and lung; Z87.891 Personal history of nicotine dependence; Z79.82 Long term (current) use of aspirin; Z79.899 Other long term (current) drug therapy

== ENCOUNTER 2023-01-20 18:39 | Inpatient (IN) | payer MEDICARE ==
[~2023-01-20] VITALS: Ht 170.2 cm; Wt 57.8 kg
[~2023-01-20 18:39] MED LIST changes: +ASPI-655 PO; +B-COSUB2 SL; +BREO1INH INH; +BREO1INH3 PO; +CALC500T38 PO; +EQL50TAB2 PO; +HYDR12.55 PO; +LEVO1TAB40 PO; +LISI20TA33 PO; +POTA10PO PO; +PROAAER10 INH; +SILD100T PO
[2023-01-20] MEDS ORDERED: ACETAMINOPHEN TAB 650MG DOSE (2X325MG) PO ONE (22:05)
[2023-01-21] MEDS ORDERED: PERCOCET 5MG/325MG TAB PO ONE (00:05)
[2023-01-21] MEDS ORDERED: POTA10LI10 PO (02:19)
[2023-01-21] MEDS ORDERED: [UNRECOGNIZED DRUG - OTHER] PO (02:19)
[2023-01-21] MEDS ORDERED: HOME MED LIST COMPLETE! XX SCH (02:20)
[2023-01-21] MEDS ORDERED: ONDANSETRON 4MG 2ML VIAL IV PRN ×2 (02:45→20:55)
[2023-01-21] MEDS: NS 1,000 ML IV SCH ×2 (02:45→14:57)
[2023-01-21] MEDS ORDERED: ALBUTEROL SULFATE 2.5MG/0.5ML INH NEB SOLN NEB PRN (02:45)
[2023-01-21 02:58] LABS: BASO % 0.2 % (0.0-1.0); EOS % 0.2 % (0.0-3.0); HEMOGLOBIN 12.5 g/dl (13.5-17.5); LYMPH # 0.7 10^3/uL (1.5-5.0); LYMPH % 4.4 % (24.0-44.0); MEAN CORPUSCULAR HEMOGLOBIN 30.7 pg (27.0-33.0); MEAN CORPUSCULAR HGB CONC 32.1 g/dl (32.0-36.5); MEAN CORPUSCULAR VOLUME 95.8 fl (80.0-96.0); MONO # 0.5 10^3/uL (0.0-0.8); NEUTROPHILS # 13.7 10^3/uL (1.5-8.5); NEUTROPHILS % 91.7 % (36.0-66.0); PLATELET COUNT, AUTOMATED 317 10^3/uL (150-450); RED BLOOD COUNT 4.07 10^6/uL (4.30-6.10); WHITE BLOOD COUNT 14.9 10^3/uL (4.0-10.0)
[2023-01-21 03:09] LABS: INR 0.98; PROTHROMBIN TIME 12.7 SECONDS (12.5-14.5)
[2023-01-21 03:10] LABS: PARTIAL THROMBOPLASTIN TIME 29.1 SECONDS (24.8-34.2)
[2023-01-21 03:22] LABS: BLOOD UREA NITROGEN 16 MG/DL (9-23); CALCIUM LEVEL 8.2 MG/DL (8.3-10.6); CARBON DIOXIDE LEVEL 33 MMOL/L (20-31); CHLORIDE LEVEL 102 MMOL/L (98-107); CREATININE FOR GFR 0.71 MG/DL (0.70-1.30); GLOMERULAR FILTRATION RATE > 60.0 (>42); GLUCOSE, FASTING 126 MG/DL (74-106); POTASSIUM SERUM 4.3 MMOL/L (3.5-5.1); SODIUM LEVEL 142 MMOL/L (136-145)
[2023-01-21] MEDS: HYDROMORPHONE HCL 0.5 MG/ 0.5 ML SYRINGE IV PRN ×3 (07:35→14:30)
[2023-01-21] MEDS: ADVAIR HFA 115/21MCG INHALER INH SCH ×2 (08:00→20:00)
[2023-01-21] MEDS: IPRATROPIUM 0.5MG/ALBUTEROL 2.5MG INH SOL UD 3ML (DUONEB) NEB SCH ×3 (08:20→20:00)
[2023-01-21 13:14] VITALS: BP 140/63; TEMP 97.3; O2SAT 94
[2023-01-21] MEDS: HEPARIN SOD (PORCINE) 5000UNITS/ML 1ML VIAL/SYRINGE SC SCH ×2 (14:00→22:00)
[2023-01-21 15:01] VITALS: BP 140/63; TEMP 98.1; O2SAT 97
[2023-01-21] MEDS ORDERED: fentaNYL 100 MCG/2 ML INJECTION As Ordered ONE (17:36)
[2023-01-21] MEDS ORDERED: MIDAZOLAM INJ 2MG/2ML VIAL As Ordered ONE (17:36)
[2023-01-21] MEDS ORDERED: ONDANSETRON 4MG 2ML VIAL As Ordered ONE (17:37)
[2023-01-21] MEDS ORDERED: propofoL 200 MG/20 ML VIAL As Ordered ONE (17:37)
[2023-01-21] MEDS ORDERED: ROCURONIUM BROMIDE 50MG/5ML VIAL As Ordered ONE (17:37)
[2023-01-21] MEDS ORDERED: LIDOCAINE 2% 100MG/5ML SDV (FOR ANES.) As Ordered ONE (17:37)
[2023-01-21] MEDS ORDERED: TRANEXAMIC ACID 100 MG/ML 10ML VIAL As Ordered ONE (19:04)
[2023-01-21] MEDS ORDERED: VANCOMYCIN 1000MG/20ML VIAL As Ordered ONE ×2 (19:05→20:29)
[2023-01-21] MEDS ORDERED: ceFAZolin 2 GM/D5W 50 ML IV BAG As Ordered ONE (19:05)
[2023-01-21] MEDS ORDERED: ACETAMINOPHEN 1000MG 100ML IV BAG As Ordered ONE (19:48)
[2023-01-21] MEDS ORDERED: SUGAMMADEX SODIUM 500 MG/5 ML VIAL (BRIDION) As Ordered ONE (20:27)
[2023-01-21] MEDS ORDERED: LR 1,000 ML IV SCH ×2 (20:55→21:35)
[2023-01-21] MEDS ORDERED: HYDROMORPHONE HCL 0.5 MG/ 0.5 ML SYRINGE IV PRN (20:55)
[2023-01-21] MEDS ORDERED: fentaNYL 100 MCG/2 ML INJECTION IV PRN (20:55)
[2023-01-21 22:05] VITALS: BP 137/63; TEMP 98.3; O2SAT 97
[2023-01-21 23:00] VITALS: BP 115/57; TEMP 97.6; O2SAT 96
[2023-01-21 23:30] VITALS: BP 105/51; TEMP 97.4; O2SAT 98
[2023-01-22] VITALS (7 sets, daily range): BP systolic 103–143; BP diastolic 53–65; TEMP 97–98; O2SAT 92–99
[2023-01-22] MEDS: IPRATROPIUM 0.5MG/ALBUTEROL 2.5MG INH SOL UD 3ML (DUONEB) NEB SCH ×4 (01:06→19:38)
[2023-01-22] MEDS: HEPARIN SOD (PORCINE) 5000UNITS/ML 1ML VIAL/SYRINGE SC SCH (05:58)
[2023-01-22 06:16] LABS: BASO % 0.2 % (0.0-1.0); HEMATOCRIT 34.8 % (42.0-52.0); LYMPH # 0.3 10^3/uL (1.5-5.0); LYMPH % 4.9 % (24.0-44.0); MEAN CORPUSCULAR HEMOGLOBIN 30.4 pg (27.0-33.0); MEAN CORPUSCULAR HGB CONC 31.6 g/dl (32.0-36.5); MEAN CORPUSCULAR VOLUME 96.1 fl (80.0-96.0); MONO # 0.1 10^3/uL (0.0-0.8); NEUTROPHILS # 5.6 10^3/uL (1.5-8.5); NEUTROPHILS % 93.4 % (36.0-66.0); PLATELET COUNT, AUTOMATED 241 10^3/uL (150-450); RED BLOOD COUNT 3.62 10^6/uL (4.30-6.10); WHITE BLOOD COUNT 5.9 10^3/uL (4.0-10.0)
[2023-01-22 06:39] LABS: BLOOD UREA NITROGEN 14 MG/DL (9-23); CALCIUM LEVEL 7.8 MG/DL (8.3-10.6); CARBON DIOXIDE LEVEL 32 MMOL/L (20-31); CHLORIDE LEVEL 102 MMOL/L (98-107); CREATININE FOR GFR 0.64 MG/DL (0.70-1.30); GLOMERULAR FILTRATION RATE > 60.0 (>42); GLUCOSE, FASTING 149 MG/DL (74-106); SODIUM LEVEL 141 MMOL/L (136-145)
[2023-01-22] MEDS: ADVAIR HFA 115/21MCG INHALER INH SCH ×2 (08:42→19:38)
[2023-01-22] MEDS ORDERED: ACETAMINOPHEN 500 MG TAB PO PRN (12:55)
[2023-01-22] MEDS ORDERED: MORPHINE 4 MG/ML 1ML VIAL IV PRN (12:55)
[2023-01-22] MEDS ORDERED: oxyCODONE 5MG TAB PO PRN ×2 (12:55)
[2023-01-22] MEDS: ASPIRIN 81MG ENTERIC TABLET PO SCH (20:05)
[2023-01-23] MEDS: IPRATROPIUM 0.5MG/ALBUTEROL 2.5MG INH SOL UD 3ML (DUONEB) NEB SCH ×4 (01:06→20:38)
[2023-01-23 04:00] VITALS: BP 115/57; TEMP 97.2; O2SAT 99
[2023-01-23 05:36] LABS: BASO % 0.4 % (0.0-1.0); EOS # 0.3 10^3/uL (0.0-0.5); HEMATOCRIT 32.2 % (42.0-52.0); HEMOGLOBIN 10.2 g/dl (13.5-17.5); LYMPH # 0.9 10^3/uL (1.5-5.0); MEAN CORPUSCULAR HEMOGLOBIN 30.4 pg (27.0-33.0); MEAN CORPUSCULAR HGB CONC 31.7 g/dl (32.0-36.5); MEAN CORPUSCULAR VOLUME 96.1 fl (80.0-96.0); MONO # 0.5 10^3/uL (0.0-0.8); MONO % 7.4 % (2.0-8.0); NEUTROPHILS # 5.1 10^3/uL (1.5-8.5); NEUTROPHILS % 74.9 % (36.0-66.0); PLATELET COUNT, AUTOMATED 225 10^3/uL (150-450); RED BLOOD COUNT 3.35 10^6/uL (4.30-6.10); WHITE BLOOD COUNT 6.8 10^3/uL (4.0-10.0)
[2023-01-23 05:58] LABS: BLOOD UREA NITROGEN 16 MG/DL (9-23); CARBON DIOXIDE LEVEL 35 MMOL/L (20-31); CHLORIDE LEVEL 105 MMOL/L (98-107); CREATININE FOR GFR 0.65 MG/DL (0.70-1.30); GLOMERULAR FILTRATION RATE > 60.0 (>42); GLUCOSE, FASTING 92 MG/DL (74-106); POTASSIUM SERUM 3.3 MMOL/L (3.5-5.1); SODIUM LEVEL 145 MMOL/L (136-145)
[2023-01-23] MEDS: ADVAIR HFA 115/21MCG INHALER INH SCH ×2 (07:35→20:36)
[2023-01-23 07:39] LABS: MAGNESIUM LEVEL 1.9 MG/DL (1.8-2.4)
[2023-01-23 07:58] VITALS: BP 123/56; TEMP 97.6; O2SAT 98
[2023-01-23] MEDS ORDERED: POTASSIUM CHLORIDE 10% LIQ 20MEQ/15ML UDC PO ONE (08:00)
[2023-01-23] MEDS: ASPIRIN 81MG ENTERIC TABLET PO SCH ×2 (09:51→20:03)
[2023-01-23] MEDS: hydroCHLOROthiazide 12.5 MG CAPSULE PO SCH (09:51)
[2023-01-23 19:00] VITALS: BP 108/62; TEMP 99.5; O2SAT 98
[2023-01-23 20:02] VITALS: BP 136/74
[2023-01-23 20:49] VITALS: BP 127/58; TEMP 98.4; O2SAT 96
[2023-01-24 00:05] VITALS: O2SAT 95
[2023-01-24] MEDS: IPRATROPIUM 0.5MG/ALBUTEROL 2.5MG INH SOL UD 3ML (DUONEB) NEB SCH ×3 (02:02→13:17)
[2023-01-24 06:00] VITALS: BP 114/58; TEMP 98.1; O2SAT 92
[2023-01-24 06:52] LABS: BASO % 0.6 % (0.0-1.0); EOS # 0.7 10^3/uL (0.0-0.5); EOS % 10.1 % (0.0-3.0); HEMATOCRIT 31.3 % (42.0-52.0); LYMPH # 0.9 10^3/uL (1.5-5.0); MEAN CORPUSCULAR HEMOGLOBIN 30.6 pg (27.0-33.0); MEAN CORPUSCULAR HGB CONC 31.9 g/dl (32.0-36.5); MEAN CORPUSCULAR VOLUME 95.7 fl (80.0-96.0); MONO # 0.6 10^3/uL (0.0-0.8); MONO % 8.1 % (2.0-8.0); NEUTROPHILS # 4.7 10^3/uL (1.5-8.5); NEUTROPHILS % 67.6 % (36.0-66.0); PLATELET COUNT, AUTOMATED 252 10^3/uL (150-450); RED BLOOD COUNT 3.27 10^6/uL (4.30-6.10); WHITE BLOOD COUNT 6.9 10^3/uL (4.0-10.0)
[2023-01-24 07:19] LABS: BLOOD UREA NITROGEN 12 MG/DL (9-23); CALCIUM LEVEL 8.5 MG/DL (8.3-10.6); CARBON DIOXIDE LEVEL 36 MMOL/L (20-31); CHLORIDE LEVEL 102 MMOL/L (98-107); GLOMERULAR FILTRATION RATE > 60.0 (>42); GLUCOSE, FASTING 95 MG/DL (74-106); POTASSIUM SERUM 3.3 MMOL/L (3.5-5.1); SODIUM LEVEL 144 MMOL/L (136-145)
[2023-01-24] MEDS: hydroCHLOROthiazide 12.5 MG CAPSULE PO SCH (08:30)
[2023-01-24] MEDS: ASPIRIN 81MG ENTERIC TABLET PO SCH (08:30)
[2023-01-24] MEDS: POTASSIUM CHLORIDE 10MEQ SR TABLET PO SCH ×2 (08:31→09:54)
[2023-01-24] MEDS ORDERED: MAGNESIUM OXIDE 400MG TAB (MAG-OX) PO SCH (09:00)
[2023-01-24] MEDS: ADVAIR HFA 115/21MCG INHALER INH SCH (09:36)
[2023-01-24] MEDS ORDERED: ASPI81TAEC PO (12:21)
[2023-01-24] MEDS ORDERED: LIDO5OIN19 TOP (12:22)
[2023-01-24] MEDS ORDERED: ACET-683 PO (12:22)
[2023-01-24] MEDS ORDERED: OXYC-517 PO (12:23)
[2023-01-25] MEDS ORDERED: POTASSIUM CHLORIDE 10MEQ SR TABLET PO SCH (09:00)
== END 2023-01-24 14:29 | disposition home health service (06) | DRG 481 ==
LOC: M ED 18:39 → M ED INP 01-21 02:44 → M PCU 01-21 13:14 → M MSPAV 01-23 18:36
PROVIDERS: ADMIT Internal Medicine; ATTEND Student in an Organized Health Care Education/Training Program
PROC: BQ14ZZZ Fluoroscopy of Left Femur (ICD-10-PCS; 2023-01-21)
PROC: 0QS704Z Reposition Left Upper Femur with Internal Fixation Device, Open Approach (ICD-10-PCS; principal; 2023-01-22)
DX: S72.012A Unspecified intracapsular fracture of left femur, initial encounter for closed fracture (principal); K50.90 Crohn's disease, unspecified, without complications; J96.11 Chronic respiratory failure with hypoxia; J44.9 Chronic obstructive pulmonary disease, unspecified; Z87.891 Personal history of nicotine dependence; R91.8 Other nonspecific abnormal finding of lung field; D64.9 Anemia, unspecified; Z66 Do not resuscitate; Z90.49 Acquired absence of other specified parts of digestive tract; I10 Essential (primary) hypertension; W01.0XXA Fall on same level from slipping, tripping and stumbling without subsequent striking against object, initial encounter; Y92.009 Unspecified place in unspecified non-institutional (private) residence as the place of occurrence of the external cause; Z79.82 Long term (current) use of aspirin; Z79.899 Other long term (current) drug therapy; Z20.822 Contact with and (suspected) exposure to COVID-19; Z99.81 Dependence on supplemental oxygen

== ENCOUNTER → 2023-02-02 | Outpatient (CLI) | payer MEDICARE ==
[~2023-02-02] MED LIST changes: +ACET-683 PO; +ASPI81TAEC PO; +LIDO5OIN19 TOP; +OXYC-517 PO; +POTA10LI10 PO; +[UNRECOGNIZED DRUG - OTHER] PO
== END ==
LOC: M SOG 08:05
PROVIDERS: ATTEND Orthopaedic Surgery
DX: S72.002A Fracture of unspecified part of neck of left femur, initial encounter for closed fracture (principal); Y93.9 Activity, unspecified; Y92.9 Unspecified place or not applicable

== ENCOUNTER → 2023-04-13 | Outpatient (CLI) | payer MEDICARE | LOC: M SOG 08:22 | PROVIDERS: ATTEND Physician Assistant | DX: S72.002D Fracture of unspecified part of neck of left femur, subsequent encounter for closed fracture with routine healing (principal); X58.XXXD Exposure to other specified factors, subsequent encounter ==

== ENCOUNTER 2024-02-26 04:00 | Inpatient (IN) | payer MEDICARE, MEDICAID ==
[~2024-02-26] VITALS: Ht 172.7 cm; Wt 45.1 kg
[2024-02-26 06:13] LABS: BASO % 0.2 % (0.0-1.0); EOS % 0.1 % (0.0-3.0); HEMATOCRIT 40.4 % (42.0-52.0); HEMOGLOBIN 13.1 g/dl (13.5-17.5); LYMPH # 0.6 10^3/uL (1.5-5.0); LYMPH % 3.3 % (24.0-44.0); MEAN CORPUSCULAR HEMOGLOBIN 31.3 pg (27.0-33.0); MEAN CORPUSCULAR HGB CONC 32.4 g/dl (32.0-36.5); MEAN CORPUSCULAR VOLUME 96.4 fl (80.0-96.0); MONO # 0.6 10^3/uL (0.0-0.8); MONO % 3.5 % (2.0-8.0); NEUTROPHILS % 92.4 % (36.0-66.0); PLATELET COUNT, AUTOMATED 319 10^3/uL (150-450); RED BLOOD COUNT 4.19 10^6/uL (4.30-6.10); WHITE BLOOD COUNT 18.4 10^3/uL (4.0-10.0)
[2024-02-26 06:28] LABS: INR 0.96; PARTIAL THROMBOPLASTIN TIME 29.2 SECONDS (24.8-34.2); PROTHROMBIN TIME 12.5 SECONDS (12.5-14.5)
[2024-02-26 06:30] LABS: BLOOD UREA NITROGEN 19 MG/DL (9-23); CALCIUM LEVEL 8.7 MG/DL (8.3-10.6); CARBON DIOXIDE LEVEL 38 MMOL/L (20-31); CHLORIDE LEVEL 99 MMOL/L (98-107); CREATININE FOR GFR 0.74 MG/DL (0.70-1.30); GLOMERULAR FILTRATION RATE > 60.0 (>42); GLUCOSE, FASTING 139 MG/DL (74-106); POTASSIUM SERUM 3.3 MMOL/L (3.5-5.1); SODIUM LEVEL 141 MMOL/L (136-145)
[2024-02-26] MEDS: ONDANSETRON 4MG 2ML VIAL IV ONE (06:33)
[2024-02-26] MEDS: MORPHINE 4 MG/ML 1ML VIAL IV PRN (06:35)
[2024-02-26] MEDS ORDERED: MAALOX 30 ML SUSP *UDC PO PRN (09:30)
[2024-02-26] MEDS ORDERED: MOM 30ML SUSPENSION UDC PO PRN (09:30)
[2024-02-26] MEDS ORDERED: ASPI-615 PO (09:37)
[2024-02-26] MEDS ORDERED: CVS5000S2 SL (09:37)
[2024-02-26] MEDS ORDERED: POTA595T16 PO (09:37)
[2024-02-26] MEDS ORDERED: ACET-683 PO (09:45)
[2024-02-26] MEDS ORDERED: HOME MED LIST COMPLETE! XX SCH (09:45)
[2024-02-26] MEDS: POTASSIUM CHLORIDE 10MEQ SR TABLET PO ONE ×2 (10:09→15:16)
[2024-02-26] MEDS: ENOXAPARIN 40MG/0.4ML SYRINGE (J1650 PER 10MG) SC SCH (10:10)
[2024-02-26] MEDS: MORPHINE 2 MG/ML 1ML VIAL IV PRN (10:11)
[2024-02-26 13:24] LABS: PROCALCITONIN 0.06 ng/ml
[2024-02-26] MEDS ORDERED: ONDANSETRON 4MG 2ML VIAL IV PRN (13:30)
[2024-02-26] MEDS: IPRATROPIUM 0.5MG/ALBUTEROL 2.5MG INH SOL UD 3ML (DUONEB) NEB SCH (14:46)
[2024-02-26] MEDS: ASPIRIN 81MG ENTERIC TABLET PO SCH (15:17)
[2024-02-26] MEDS: FUROSEMIDE 40MG/4ML VIAL IV ONE (15:17)
[2024-02-26] MEDS: IPRATROPIUM 0.5MG/ALBUTEROL 2.5MG INH SOL UD 3ML (DUONEB) NEB PRN (18:07)
[2024-02-26] MEDS: DOCUSATE SODIUM 100MG CAPSULE PO SCH (20:58)
[2024-02-26 21:02] VITALS: BP 105/61; TEMP 98; O2SAT 97
[2024-02-26 23:05] VITALS: BP 127/71; TEMP 98.2; O2SAT 93
[2024-02-27] VITALS (7 sets, daily range): BP systolic 113–143; BP diastolic 54–66; TEMP 98.2–101.2; O2SAT 89–96
[2024-02-27] MEDS: PERCOCET 5MG/325MG TAB PO ONE (00:14)
[2024-02-27] MEDS: ACETAMINOPHEN TAB 650MG DOSE (2X325MG) PO PRN (02:04)
[2024-02-27 05:58] LABS: BASO % 0.2 % (0.0-1.0); EOS # 0.4 10^3/uL (0.0-0.5); EOS % 3.1 % (0.0-3.0); HEMATOCRIT 37.3 % (42.0-52.0); HEMOGLOBIN 11.5 g/dl (13.5-17.5); LYMPH # 0.6 10^3/uL (1.5-5.0); LYMPH % 4.5 % (24.0-44.0); MEAN CORPUSCULAR HEMOGLOBIN 30.6 pg (27.0-33.0); MEAN CORPUSCULAR HGB CONC 30.8 g/dl (32.0-36.5); MEAN CORPUSCULAR VOLUME 99.2 fl (80.0-96.0); MONO # 0.5 10^3/uL (0.0-0.8); MONO % 4.1 % (2.0-8.0); NEUTROPHILS % 87.5 % (36.0-66.0); PLATELET COUNT, AUTOMATED 281 10^3/uL (150-450); RED BLOOD COUNT 3.76 10^6/uL (4.30-6.10); WHITE BLOOD COUNT 12.6 10^3/uL (4.0-10.0)
[2024-02-27 06:33] LABS: BLOOD UREA NITROGEN 20 MG/DL (9-23); CALCIUM LEVEL 8.4 MG/DL (8.3-10.6); CARBON DIOXIDE LEVEL > 40.0 MMOL/L (20-31); CHLORIDE LEVEL 95 MMOL/L (98-107); CREATININE FOR GFR 0.87 MG/DL (0.70-1.30); GLOMERULAR FILTRATION RATE > 60.0 (>42); GLUCOSE, FASTING 120 MG/DL (74-106); MAGNESIUM LEVEL 1.8 MG/DL (1.8-2.4); POTASSIUM SERUM 3.6 MMOL/L (3.5-5.1); SODIUM LEVEL 139 MMOL/L (136-145)
[2024-02-27 11:32] LABS: HEMOGLOBIN A1c 5.7 % (4.0-6.0)
[2024-02-27] MEDS ORDERED: PIPERACILLIN/TAZOBACTAM SOD 3.375 GM in D5W MINI-BAG PLUS 50 ML IV SCH (12:30)
[2024-02-27] MEDS: NS 1,000 ML IV SCH (12:47)
[2024-02-27] MEDS: PIPERACILLIN/TAZOBACTAM SOD 4.5 GM in D5W MINI-BAG PLUS 50 ML IV SCH (13:32)
[2024-02-27] MEDS: PERCOCET 5MG/325MG TAB PO PRN (20:22)
[2024-02-28] VITALS (8 sets, daily range): BP systolic 94–135; BP diastolic 50–72; TEMP 97.1–98.8; O2SAT 92–97
[2024-02-28] MEDS: PERCOCET 5MG/325MG TAB PO PRN (02:26)
[2024-02-28 05:42] LABS: BASO % 0.2 % (0.0-1.0); EOS # 0.1 10^3/uL (0.0-0.5); EOS % 1.1 % (0.0-3.0); HEMATOCRIT 33.5 % (42.0-52.0); HEMOGLOBIN 10.4 g/dl (13.5-17.5); LYMPH # 0.6 10^3/uL (1.5-5.0); MEAN CORPUSCULAR HEMOGLOBIN 30.4 pg (27.0-33.0); MONO # 0.5 10^3/uL (0.0-0.8); MONO % 4.1 % (2.0-8.0); NEUTROPHILS # 9.9 10^3/uL (1.5-8.5); NEUTROPHILS % 89.2 % (36.0-66.0); PLATELET COUNT, AUTOMATED 241 10^3/uL (150-450); RED BLOOD COUNT 3.42 10^6/uL (4.30-6.10); WHITE BLOOD COUNT 11.1 10^3/uL (4.0-10.0)
[2024-02-28 06:08] LABS: BLOOD UREA NITROGEN 18 MG/DL (9-23); CALCIUM LEVEL 8.4 MG/DL (8.3-10.6); CARBON DIOXIDE LEVEL > 40.0 MMOL/L (20-31); CHLORIDE LEVEL 97 MMOL/L (98-107); CREATININE FOR GFR 0.42 MG/DL (0.70-1.30); GLOMERULAR FILTRATION RATE > 60.0 (>42); GLUCOSE, FASTING 110 MG/DL (74-106); MAGNESIUM LEVEL 1.8 MG/DL (1.8-2.4); POTASSIUM SERUM 3.2 MMOL/L (3.5-5.1); SODIUM LEVEL 139 MMOL/L (136-145)
[2024-02-28] MEDS: POTASSIUM CHLORIDE 10MEQ SR TABLET PO ONE (08:27)
[2024-02-28] MEDS ORDERED: MIDAZOLAM INJ 2MG/2ML VIAL As Ordered ONE (09:03)
[2024-02-28] MEDS ORDERED: fentaNYL 100 MCG/2 ML INJECTION As Ordered ONE (09:04)
[2024-02-28] MEDS ORDERED: propofoL 200 MG/20 ML VIAL As Ordered ONE (09:04)
[2024-02-28] MEDS ORDERED: PHENYLEPHRINE 10MG/ML 1ML VIAL As Ordered ONE (10:25)
[2024-02-28] MEDS ORDERED: ROCURONIUM BROMIDE 50MG/5ML VIAL As Ordered ONE (10:31)
[2024-02-28] MEDS ORDERED: ePHEDrine SULFATE 25 MG/5 ML(5MG/ML) SYRINGE As Ordered ONE (10:31)
[2024-02-28] MEDS ORDERED: ONDANSETRON 4MG 2ML VIAL As Ordered ONE (10:32)
[2024-02-28] MEDS ORDERED: PHENYLephrine 500MCG 5ML (100MCG/ML) SYRINGE As Ordered ONE (10:32)
[2024-02-28] MEDS ORDERED: SUGAMMADEX SODIUM 500 MG/5 ML VIAL (BRIDION) As Ordered ONE (10:32)
[2024-02-28] MEDS ORDERED: ACETAMINOPHEN 1000MG 100ML IV BAG As Ordered ONE (10:42)
[2024-02-28] MEDS: ceFAZolin 2 GM/D5W 50 ML IV BAG As Ordered ONE (10:45)
[2024-02-28] MEDS: VANCOMYCIN 500MG/10ML VIAL As Ordered ONE (10:53)
[2024-02-28] MEDS: TRANEXAMIC ACID 100 MG/ML 10ML VIAL As Ordered ONE (10:55)
[2024-02-28] MEDS ORDERED: MORPHINE 2 MG/ML 1ML VIAL IV PRN (12:05)
[2024-02-28] MEDS ORDERED: ONDANSETRON 4MG 2ML VIAL IV PRN ×2 (12:05→12:20)
[2024-02-28] MEDS ORDERED: oxyCODONE 5MG TAB PO PRN ×2 (12:05→12:20)
[2024-02-28] MEDS ORDERED: fentaNYL 100 MCG/2 ML INJECTION IV PRN (12:05)
[2024-02-28] MEDS ORDERED: SENNA 8.6 MG TAB (SENOKOT) PO PRN (12:20)
[2024-02-28 14:59] LABS: ABG BASE EXCESS 10.4 (-2.0-2.0); ABG O2 SATURATION 77.3 % (95.0-99.0); ABG STANDARD HCO3 33.7 MMOL/L. (22.0-26.0); ABG TOTAL CO2 41.3 MMOL/L (23.0-31.0); ABG pH (ARTERIAL) 7.325 UNITS (7.350-7.450)
[2024-02-28 15:04] LABS: ABG PARTIAL PRESSURE CO2 76.5 mmHg (35.0-45.0)
[2024-02-28 15:05] LABS: ABG PARTIAL PRESSURE O2 43.4 mmHg (75.0-100.0)
[2024-02-28] MEDS: LR 500 ML IV ONE (15:10)
[2024-02-28] MEDS ORDERED: ZOSYN 4.5GM VIAL As Ordered ONE (15:46)
[2024-02-28] MEDS: ASCORBIC ACID 500 MG TAB PO SCH (16:57)
[2024-02-28] MEDS: LR 1,000 ML IV SCH (16:57)
[2024-02-28] MEDS: FERROUS SULFATE 325MG TAB PO SCH (16:57)
[2024-02-28] MEDS: ACETAMINOPHEN TAB 650MG DOSE (2X325MG) PO SCH (16:58)
[2024-02-28] MEDS: NAPROXEN 250 MG TAB PO SCH (20:19)
[2024-02-28] MEDS: ASPIRIN 81MG ENTERIC TABLET PO SCH (20:19)
[2024-02-28] MEDS: ceFAZolin SOD 2 GM in IV 1 EA IV SCH (20:57)
[2024-02-28] MEDS ORDERED: DOCUSATE SODIUM 100MG CAPSULE PO SCH (21:00)
[2024-02-29] VITALS (22 sets, daily range): BP systolic 108–140; BP diastolic 56–65; TEMP 97.2–98.6; O2SAT 9–100
[2024-02-29 08:36] LABS: BASO % 0.1 % (0.0-1.0); EOS % 0.1 % (0.0-3.0); HEMATOCRIT 32.1 % (42.0-52.0); HEMOGLOBIN 9.8 g/dl (13.5-17.5); LYMPH # 0.4 10^3/uL (1.5-5.0); MEAN CORPUSCULAR HEMOGLOBIN 30.2 pg (27.0-33.0); MEAN CORPUSCULAR HGB CONC 30.5 g/dl (32.0-36.5); MEAN CORPUSCULAR VOLUME 98.8 fl (80.0-96.0); MONO # 0.5 10^3/uL (0.0-0.8); MONO % 3.9 % (2.0-8.0); NEUTROPHILS # 11.2 10^3/uL (1.5-8.5); NEUTROPHILS % 92.2 % (36.0-66.0); PLATELET COUNT, AUTOMATED 282 10^3/uL (150-450); RED BLOOD COUNT 3.25 10^6/uL (4.30-6.10); WHITE BLOOD COUNT 12.1 10^3/uL (4.0-10.0)
[2024-02-29 09:12] LABS: BLOOD UREA NITROGEN 15 MG/DL (9-23); CALCIUM LEVEL 8.4 MG/DL (8.3-10.6); CARBON DIOXIDE LEVEL > 40.0 MMOL/L (20-31); CHLORIDE LEVEL 98 MMOL/L (98-107); CREATININE FOR GFR 0.77 MG/DL (0.70-1.30); GLOMERULAR FILTRATION RATE > 60.0 (>42); GLUCOSE, FASTING 114 MG/DL (74-106); POTASSIUM SERUM 3.6 MMOL/L (3.5-5.1); SODIUM LEVEL 141 MMOL/L (136-145)
[2024-02-29] MEDS: oxyCODONE 5MG TAB PO PRN (09:23)
[2024-02-29] MEDS: AUGMENTIN 875 MG TAB PO SCH (09:23)
[2024-02-29] MEDS: PREVNAR-20 VACCINE 0.5ML SYRINGE IM.IMMUN ONE (12:09)
[2024-02-29] MEDS: FLUBLOK(EGGFREE) TRIVAL(24-25) VACCINE PF 0.5ML SYRINGE 18YRS & OLDER IM.IMMUN ONE (12:10)
[2024-03-01 04:55] VITALS: BP 139/63; TEMP 97.9; O2SAT 96
[2024-03-01 06:28] LABS: BASO % 0.2 % (0.0-1.0); EOS # 0.4 10^3/uL (0.0-0.5); EOS % 4.7 % (0.0-3.0); HEMATOCRIT 30.2 % (42.0-52.0); HEMOGLOBIN 9.2 g/dl (13.5-17.5); LYMPH # 0.6 10^3/uL (1.5-5.0); MEAN CORPUSCULAR HEMOGLOBIN 30.8 pg (27.0-33.0); MEAN CORPUSCULAR HGB CONC 30.5 g/dl (32.0-36.5); MONO # 0.5 10^3/uL (0.0-0.8); MONO % 5.3 % (2.0-8.0); NEUTROPHILS # 7.5 10^3/uL (1.5-8.5); NEUTROPHILS % 82.5 % (36.0-66.0); PLATELET COUNT, AUTOMATED 266 10^3/uL (150-450); RED BLOOD COUNT 2.99 10^6/uL (4.30-6.10); WHITE BLOOD COUNT 9.1 10^3/uL (4.0-10.0)
[2024-03-01 06:52] LABS: BLOOD UREA NITROGEN 14 MG/DL (9-23); CALCIUM LEVEL 8.1 MG/DL (8.3-10.6); CARBON DIOXIDE LEVEL > 40.0 MMOL/L (20-31); CHLORIDE LEVEL 102 MMOL/L (98-107); CREATININE FOR GFR 0.75 MG/DL (0.70-1.30); GLOMERULAR FILTRATION RATE > 60.0 (>42); GLUCOSE, FASTING 91 MG/DL (74-106); POTASSIUM SERUM 3.1 MMOL/L (3.5-5.1); SODIUM LEVEL 145 MMOL/L (136-145)
[2024-03-01] MEDS: POTASSIUM CHLORIDE 10% LIQ 20MEQ/15ML UDC PO ONE ×2 (08:00→12:32)
[2024-03-01 08:10] VITALS: O2SAT 93
[2024-03-01] MEDS: hydroCHLOROthiazide 12.5 MG CAPSULE PO SCH (12:33)
[2024-03-01 12:35] VITALS: BP 149/71; TEMP 98.2; O2SAT 94
[2024-03-01 19:39] VITALS: BP 147/72; TEMP 97.8; O2SAT 95
[2024-03-01] MEDS: SYMBICORT 160/4.5MCG INHALER 6GM INH SCH (20:49)
[2024-03-02 04:00] VITALS: BP 150/70; TEMP 97.7; O2SAT 94
[2024-03-02 06:32] LABS: BASO % 0.3 % (0.0-1.0); EOS # 0.4 10^3/uL (0.0-0.5); EOS % 4.9 % (0.0-3.0); HEMATOCRIT 28.7 % (42.0-52.0); HEMOGLOBIN 8.9 g/dl (13.5-17.5); LYMPH # 0.6 10^3/uL (1.5-5.0); LYMPH % 6.8 % (24.0-44.0); MEAN CORPUSCULAR HEMOGLOBIN 30.9 pg (27.0-33.0); MEAN CORPUSCULAR VOLUME 99.7 fl (80.0-96.0); MONO # 0.5 10^3/uL (0.0-0.8); MONO % 5.7 % (2.0-8.0); NEUTROPHILS # 7.3 10^3/uL (1.5-8.5); PLATELET COUNT, AUTOMATED 276 10^3/uL (150-450); RED BLOOD COUNT 2.88 10^6/uL (4.30-6.10); WHITE BLOOD COUNT 8.9 10^3/uL (4.0-10.0)
[2024-03-02 06:59] LABS: BLOOD UREA NITROGEN 10 MG/DL (9-23); CALCIUM LEVEL 8.6 MG/DL (8.3-10.6); CARBON DIOXIDE LEVEL > 40.0 MMOL/L (20-31); CHLORIDE LEVEL 102 MMOL/L (98-107); CREATININE FOR GFR 0.58 MG/DL (0.70-1.30); GLOMERULAR FILTRATION RATE > 60.0 (>42); GLUCOSE, FASTING 92 MG/DL (74-106); POTASSIUM SERUM 3.1 MMOL/L (3.5-5.1); SODIUM LEVEL 145 MMOL/L (136-145)
[2024-03-02] MEDS: POTASSIUM CHLORIDE 10% LIQ 20MEQ/15ML UDC PO ONE (09:15)
[2024-03-02 12:11] VITALS: BP 163/79; TEMP 98.1; O2SAT 90
[2024-03-02 19:48] VITALS: BP 161/67; TEMP 98.1; O2SAT 94
[2024-03-03 04:00] VITALS: BP 159/68; TEMP 97.7; O2SAT 96
[2024-03-03] MEDS: LOPERAMIDE 2 MG CAPLET PO ONE (04:16)
[2024-03-03 06:46] LABS: BASO % 0.2 % (0.0-1.0); EOS # 0.3 10^3/uL (0.0-0.5); EOS % 3.2 % (0.0-3.0); HEMATOCRIT 30.4 % (42.0-52.0); HEMOGLOBIN 9.4 g/dl (13.5-17.5); LYMPH # 0.6 10^3/uL (1.5-5.0); LYMPH % 5.8 % (24.0-44.0); MEAN CORPUSCULAR HEMOGLOBIN 30.1 pg (27.0-33.0); MEAN CORPUSCULAR HGB CONC 30.9 g/dl (32.0-36.5); MEAN CORPUSCULAR VOLUME 97.4 fl (80.0-96.0); MONO # 0.6 10^3/uL (0.0-0.8); MONO % 5.3 % (2.0-8.0); NEUTROPHILS # 8.9 10^3/uL (1.5-8.5); NEUTROPHILS % 85.2 % (36.0-66.0); PLATELET COUNT, AUTOMATED 320 10^3/uL (150-450); RED BLOOD COUNT 3.12 10^6/uL (4.30-6.10); WHITE BLOOD COUNT 10.4 10^3/uL (4.0-10.0)
[2024-03-03 07:14] LABS: BLOOD UREA NITROGEN 10 MG/DL (9-23); CALCIUM LEVEL 8.3 MG/DL (8.3-10.6); CARBON DIOXIDE LEVEL > 40.0 MMOL/L (20-31); CHLORIDE LEVEL 97 MMOL/L (98-107); CREATININE FOR GFR 0.55 MG/DL (0.70-1.30); GLOMERULAR FILTRATION RATE > 60.0 (>42); GLUCOSE, FASTING 103 MG/DL (74-106); POTASSIUM SERUM 3.1 MMOL/L (3.5-5.1); SODIUM LEVEL 142 MMOL/L (136-145)
[2024-03-03] MEDS: POTASSIUM CHLORIDE 10MEQ SR TABLET PO ONE (10:18)
[2024-03-03 12:22] VITALS: BP 130/67; TEMP 98.1; O2SAT 98
[2024-03-03] MEDS: LOPERAMIDE 2 MG CAPLET PO PRN (12:50)
[2024-03-03 20:13] VITALS: BP 123/69; TEMP 97.8; O2SAT 97
[2024-03-04 04:00] VITALS: BP 137/64; TEMP 97.5; O2SAT 97
[2024-03-04 06:27] LABS: BASO % 0.3 % (0.0-1.0); EOS # 0.7 10^3/uL (0.0-0.5); EOS % 6.2 % (0.0-3.0); HEMATOCRIT 31.5 % (42.0-52.0); HEMOGLOBIN 9.5 g/dl (13.5-17.5); LYMPH # 0.7 10^3/uL (1.5-5.0); LYMPH % 6.4 % (24.0-44.0); MEAN CORPUSCULAR HEMOGLOBIN 30.2 pg (27.0-33.0); MEAN CORPUSCULAR HGB CONC 30.2 g/dl (32.0-36.5); MONO # 0.6 10^3/uL (0.0-0.8); MONO % 5.7 % (2.0-8.0); NEUTROPHILS # 8.6 10^3/uL (1.5-8.5); NEUTROPHILS % 81.1 % (36.0-66.0); PLATELET COUNT, AUTOMATED 392 10^3/uL (150-450); RED BLOOD COUNT 3.15 10^6/uL (4.30-6.10); WHITE BLOOD COUNT 10.6 10^3/uL (4.0-10.0)
[2024-03-04 06:57] LABS: BLOOD UREA NITROGEN 13 MG/DL (9-23); CALCIUM LEVEL 8.3 MG/DL (8.3-10.6); CARBON DIOXIDE LEVEL > 40.0 MMOL/L (20-31); CHLORIDE LEVEL 98 MMOL/L (98-107); CREATININE FOR GFR 0.67 MG/DL (0.70-1.30); GLOMERULAR FILTRATION RATE > 60.0 (>42); GLUCOSE, FASTING 105 MG/DL (74-106); POTASSIUM SERUM 3.2 MMOL/L (3.5-5.1); SODIUM LEVEL 143 MMOL/L (136-145)
[2024-03-04] MEDS: POTASSIUM CHLORIDE 10MEQ SR TABLET PO ONE (09:03)
[2024-03-04] MEDS: LACTOBACILLUS ACIDOPHILUS CAP (BACID) PO SCH (10:36)
[2024-03-04 12:00] VITALS: BP 150/63; TEMP 97.9; O2SAT 96
[2024-03-04 19:47] VITALS: BP 141/66; TEMP 98.1; O2SAT 93
[2024-03-04 19:59] VITALS: O2SAT 96
[2024-03-05 04:14] VITALS: BP 135/64; TEMP 97.9; O2SAT 95
[2024-03-05] MEDS ORDERED: DIAPER RELIEF PASTE (DESITIN) 60GM TOP SCH (08:10)
[2024-03-05] MEDS: POTASSIUM CHLORIDE 10MEQ SR TABLET PO ONE (08:24)
[2024-03-05] MEDS ORDERED: VITAMIN A & D OINTMENT 42.5GM TOP PRN (09:55)
[2024-03-05 12:00] VITALS: BP 154/96; TEMP 97.9; O2SAT 96
[2024-03-05 14:49] LABS: CLOSTRIDIUM DIFFICILE PCR POSITIVE (NEGATIVE)
[2024-03-05 20:37] VITALS: BP 113/64; TEMP 97.7; O2SAT 97
[2024-03-06 05:09] VITALS: BP 116/48; TEMP 98.2; O2SAT 99
[2024-03-06 07:49] LABS: HEMATOCRIT 29.3 % (42.0-52.0); HEMOGLOBIN 9.1 g/dl (13.5-17.5); MEAN CORPUSCULAR HEMOGLOBIN 30.8 pg (27.0-33.0); MEAN CORPUSCULAR HGB CONC 31.1 g/dl (32.0-36.5); MEAN CORPUSCULAR VOLUME 99.3 fl (80.0-96.0); PLATELET COUNT, AUTOMATED 496 10^3/uL (150-450); RED BLOOD COUNT 2.95 10^6/uL (4.30-6.10); WHITE BLOOD COUNT 8.3 10^3/uL (4.0-10.0)
[2024-03-06] MEDS: POTASSIUM CHLORIDE 10MEQ SR TABLET PO SCH (09:10)
[2024-03-06 12:00] VITALS: BP_SYST 110; BP_SYST 91; BP_DIAS 56; BP_DIAS 62; TEMP 97.9; O2SAT 98
[2024-03-06 20:37] VITALS: BP 123/49; TEMP 98.1; O2SAT 97
[2024-03-07 05:14] VITALS: BP 125/52; TEMP 96.8; O2SAT 98
[2024-03-08 04:01] VITALS: TEMP 97.7; O2SAT 99
[2024-03-08 04:48] VITALS: BP 92/52
[2024-03-08 09:12] VITALS: BP 126/69
[2024-03-08] MEDS ORDERED: ASPI-615 PO (12:05)
[2024-03-08 12:23] LABS: BLOOD UREA NITROGEN 19 MG/DL (9-23); CALCIUM LEVEL 8.5 MG/DL (8.3-10.6); CARBON DIOXIDE LEVEL > 40.0 MMOL/L (20-31); CHLORIDE LEVEL 103 MMOL/L (98-107); GLOMERULAR FILTRATION RATE > 60.0 (>42); GLUCOSE, FASTING 128 MG/DL (74-106); POTASSIUM SERUM 3.3 MMOL/L (3.5-5.1); SODIUM LEVEL 144 MMOL/L (136-145)
[2024-03-08] MEDS ORDERED: POTA-151 PO (13:38)
[2024-03-08] MEDS ORDERED: POTA-298 PO (13:38)
[2024-03-08] MEDS ORDERED: POTASSIUM CHLORIDE 10MEQ SR TABLET PO ONE (14:00)
[2024-03-08] MEDS ORDERED: POTA10TA67 PO (14:45)
== END 2024-03-08 15:00 | disposition home health service (06) | DRG 521 ==
LOC: EDBD 04:00 → M ED 04:00 → M ED INP 08:52 → M PCU 23:05 → M MS5PR 02-29 16:52
PROVIDERS: ADMIT Internal Medicine; ATTEND Internal Medicine
PROC: 0SRR0JA Replacement of Right Hip Joint, Femoral Surface with Synthetic Substitute, Uncemented, Open Approach (ICD-10-PCS; principal; 2024-02-28 09:15)
DX: S72.001A Fracture of unspecified part of neck of right femur, initial encounter for closed fracture (principal); J69.0 Pneumonitis due to inhalation of food and vomit; K50.90 Crohn's disease, unspecified, without complications; J96.11 Chronic respiratory failure with hypoxia; J98.11 Atelectasis; W18.09XA Striking against other object with subsequent fall, initial encounter; Y92.019 Unspecified place in single-family (private) house as the place of occurrence of the external cause; Y93.9 Activity, unspecified; Y99.8 Other external cause status; J44.9 Chronic obstructive pulmonary disease, unspecified; I10 Essential (primary) hypertension; Z99.81 Dependence on supplemental oxygen; R91.8 Other nonspecific abnormal finding of lung field; K22.5 Diverticulum of esophagus, acquired; Z66 Do not resuscitate; E87.6 Hypokalemia; R13.10 Dysphagia, unspecified; D64.9 Anemia, unspecified; I27.20 Pulmonary hypertension, unspecified; Z79.82 Long term (current) use of aspirin; Z96.642 Presence of left artificial hip joint; Z79.899 Other long term (current) drug therapy; Z90.49 Acquired absence of other specified parts of digestive tract

== ENCOUNTER → 2024-03-18 | Outpatient (CLI) | payer MEDICARE, MEDICAID ==
[~2024-03-18] MED LIST changes: +ASPI-615 PO; +CVS5000S2 SL; +POTA-151 PO; +POTA-298 PO; +POTA10TA67 PO; +POTA595T16 PO
== END ==
LOC: M SOG 07:31
PROVIDERS: ATTEND Physician Assistant
DX: Z47.89 Encounter for other orthopedic aftercare (principal); M25.551 Pain in right hip

== ENCOUNTER → 2024-04-22 | Outpatient (CLI) | payer MEDICARE, MEDICAID | LOC: M SOG 07:51 | PROVIDERS: ATTEND Physician Assistant | DX: Z47.89 Encounter for other orthopedic aftercare (principal); M25.551 Pain in right hip; Z53.9 Procedure and treatment not carried out, unspecified reason ==

== ENCOUNTER 2024-05-27 09:57 | Inpatient (IN) | payer MEDICARE, MEDICAID ==
[~2024-05-27] VITALS: Ht 172.7 cm; Wt 46.9 kg
[2024-05-27] MEDS ORDERED: IBUP200T46 PO (10:13)
[2024-05-27] MEDS ORDERED: POTA-141 (10:13)
[2024-05-27] MEDS ORDERED: ASPI81TA26 PO (10:13)
[2024-05-27 10:50] LABS: BASO % 0.3 % (0.0-1.0); EOS % 0.4 % (0.0-3.0); HEMATOCRIT 43.1 % (42.0-52.0); HEMOGLOBIN 12.6 g/dl (13.5-17.5); LYMPH # 0.5 10^3/uL (1.5-5.0); LYMPH % 7.3 % (24.0-44.0); MEAN CORPUSCULAR HEMOGLOBIN 29.9 pg (27.0-33.0); MEAN CORPUSCULAR HGB CONC 29.2 g/dl (32.0-36.5); MEAN CORPUSCULAR VOLUME 102.1 fl (80.0-96.0); MONO # 0.4 10^3/uL (0.0-0.8); MONO % 4.8 % (2.0-8.0); NEUTROPHILS # 6.3 10^3/uL (1.5-8.5); NEUTROPHILS % 86.8 % (36.0-66.0); PLATELET COUNT, AUTOMATED 351 10^3/uL (150-450); RED BLOOD COUNT 4.22 10^6/uL (4.30-6.10); WHITE BLOOD COUNT 7.2 10^3/uL (4.0-10.0)
[2024-05-27 11:20] LABS: ALBUMIN 2.6 G/DL (3.2-5.2); ALKALINE PHOSPHATASE 75 U/L (40-129); ALT/SGPT 14 U/L (7.0-40); AST/SGOT 11 U/L (<34); BILIRUBIN,DIRECT 0.1 MG/DL (<0.4); BILIRUBIN,TOTAL 0.4 MG/DL (0.3-1.2); BLOOD UREA NITROGEN 19 MG/DL (9-23); CALCIUM LEVEL 9.5 MG/DL (8.3-10.6); CARBON DIOXIDE LEVEL > 40.0 MMOL/L (20-31); CHLORIDE LEVEL 96 MMOL/L (98-107); CREATININE FOR GFR 0.59 MG/DL (0.70-1.30); GLOMERULAR FILTRATION RATE > 60.0 (>42); GLUCOSE, FASTING 97 MG/DL (74-106); SODIUM LEVEL 145 MMOL/L (136-145); TOTAL PROTEIN 7.3 G/DL (5.7-8.2)
[2024-05-27] MEDS: dexAMETHasone 20MG/5ML VIAL IV ONE (11:39)
[2024-05-27] MEDS: IPRATROPIUM 0.5MG/ALBUTEROL 2.5MG INH SOL UD 3ML (DUONEB) NEB SCH ×2 (11:41→19:55)
[2024-05-27] MEDS ORDERED: IPRATROPIUM 0.5MG/ALBUTEROL 2.5MG INH SOL UD 3ML (DUONEB) NEB SCH ×2 (14:00→18:00)
[2024-05-27] MEDS ORDERED: POTA20PW PO (14:40)
[2024-05-27] MEDS ORDERED: HOME MED LIST COMPLETE! XX SCH (14:45)
[2024-05-27] MEDS ORDERED: ACETAMINOPHEN 325 MG TAB PO PRN (14:50)
[2024-05-27] MEDS ORDERED: IPRATROPIUM 0.5MG/ALBUTEROL 2.5MG INH SOL UD 3ML (DUONEB) NEB PRN (15:20)
[2024-05-27 15:58] LABS: PROCALCITONIN 0.06 ng/ml
[2024-05-27 16:14] LABS: ABG BASE EXCESS 13.3 (-2.0-2.0); ABG HCO3 43.4 MMOL/L (22.0-26.0); ABG O2 SATURATION 95.3 % (95.0-99.0); ABG PARTIAL PRESSURE O2 82.1 mmHg (75.0-100.0); ABG STANDARD HCO3 37.1 MMOL/L. (22.0-26.0); ABG TOTAL CO2 46.1 MMOL/L (23.0-31.0); ABG pH (ARTERIAL) 7.305 UNITS (7.350-7.450)
[2024-05-27 16:17] LABS: ABG PARTIAL PRESSURE CO2 89.1 mmHg (35.0-45.0)
[2024-05-27 17:09] LABS: VITAMIN B12 LEVEL 1516 PG/ML (211-911)
[2024-05-27 17:10] LABS: FOLATE 20.09 NG/ML (>5.4)
[2024-05-27] MEDS: methylPREDNISolone 40MG 1ML VIAL IV SCH (18:20)
[2024-05-27] MEDS: BUDESONIDE 0.5 MG/2 ML INHALATION SUSPENSION NEB SCH (19:55)
[2024-05-27] MEDS ORDERED: methylPREDNISolone 40MG 1ML VIAL IV SCH (20:00)
[2024-05-27] MEDS: DOXYCYCLINE HYCLATE 100MG TABLET PO SCH (22:29)
[2024-05-27] MEDS: ENOXAPARIN 40MG/0.4ML SYRINGE (J1650 PER 10MG) SC SCH (22:29)
[2024-05-28] VITALS (21 sets, daily range): BP systolic 141–168; BP diastolic 62–75; TEMP 97.5–98.3; O2SAT 86–99
[2024-05-28 05:36] LABS: ABG BASE EXCESS 17.2 (-2.0-2.0); ABG HCO3 46.5 MMOL/L (22.0-26.0); ABG O2 SATURATION 93.4 % (95.0-99.0); ABG PARTIAL PRESSURE O2 70.9 mmHg (75.0-100.0); ABG STANDARD HCO3 41.1 MMOL/L. (22.0-26.0); ABG TOTAL CO2 49.1 MMOL/L (23.0-31.0); ABG pH (ARTERIAL) 7.347 UNITS (7.350-7.450)
[2024-05-28 05:41] LABS: ABG PARTIAL PRESSURE CO2 86.7 mmHg (35.0-45.0)
[2024-05-28 06:09] LABS: HEMATOCRIT 37.1 % (42.0-52.0); LYMPH # 0.3 10^3/uL (1.5-5.0); LYMPH % 8.3 % (24.0-44.0); MEAN CORPUSCULAR HEMOGLOBIN 29.8 pg (27.0-33.0); MEAN CORPUSCULAR HGB CONC 29.6 g/dl (32.0-36.5); MEAN CORPUSCULAR VOLUME 100.5 fl (80.0-96.0); MONO # 0.1 10^3/uL (0.0-0.8); MONO % 1.8 % (2.0-8.0); NEUTROPHILS # 3.4 10^3/uL (1.5-8.5); NEUTROPHILS % 89.6 % (36.0-66.0); PLATELET COUNT, AUTOMATED 318 10^3/uL (150-450); RED BLOOD COUNT 3.69 10^6/uL (4.30-6.10); WHITE BLOOD COUNT 3.8 10^3/uL (4.0-10.0)
[2024-05-28 06:45] LABS: BLOOD UREA NITROGEN 21 MG/DL (9-23); CALCIUM LEVEL 9.3 MG/DL (8.3-10.6); CARBON DIOXIDE LEVEL > 40.0 MMOL/L (20-31); CHLORIDE LEVEL 97 MMOL/L (98-107); CREATININE FOR GFR 0.55 MG/DL (0.70-1.30); GLOMERULAR FILTRATION RATE > 60.0 (>42); GLUCOSE, FASTING 147 MG/DL (74-106); MAGNESIUM LEVEL 2.2 MG/DL (1.8-2.4); SODIUM LEVEL 148 MMOL/L (136-145)
[2024-05-28] MEDS: ASPIRIN 81MG ENTERIC TABLET PO SCH (08:00)
[2024-05-28] MEDS ORDERED: CYANOCOBALAMIN 500 MCG TAB PO SCH (09:00)
[2024-05-28] MEDS: D5W/0.45% SODIUM CHLORIDE 1,000 ML IV ONE (11:13)
[2024-05-29] VITALS (22 sets, daily range): BP systolic 102–148; BP diastolic 65–70; TEMP 96.8–97.4; O2SAT 84–100
[2024-05-29 07:06] LABS: BASO % 0.1 % (0.0-1.0); HEMATOCRIT 34.5 % (42.0-52.0); HEMOGLOBIN 10.4 g/dl (13.5-17.5); LYMPH # 0.3 10^3/uL (1.5-5.0); LYMPH % 2.5 % (24.0-44.0); MEAN CORPUSCULAR HEMOGLOBIN 30.3 pg (27.0-33.0); MEAN CORPUSCULAR HGB CONC 30.1 g/dl (32.0-36.5); MEAN CORPUSCULAR VOLUME 100.6 fl (80.0-96.0); MONO # 0.2 10^3/uL (0.0-0.8); MONO % 2.2 % (2.0-8.0); NEUTROPHILS # 10.1 10^3/uL (1.5-8.5); PLATELET COUNT, AUTOMATED 304 10^3/uL (150-450); RED BLOOD COUNT 3.43 10^6/uL (4.30-6.10); WHITE BLOOD COUNT 10.7 10^3/uL (4.0-10.0)
[2024-05-29 07:45] LABS: BLOOD UREA NITROGEN 23 MG/DL (9-23); CALCIUM LEVEL 8.7 MG/DL (8.3-10.6); CARBON DIOXIDE LEVEL > 40.0 MMOL/L (20-31); CHLORIDE LEVEL 98 MMOL/L (98-107); CREATININE FOR GFR 0.53 MG/DL (0.70-1.30); GLOMERULAR FILTRATION RATE > 60.0 (>42); GLUCOSE, FASTING 162 MG/DL (74-106); POTASSIUM SERUM 3.6 MMOL/L (3.5-5.1); SODIUM LEVEL 147 MMOL/L (136-145)
[2024-05-29] MEDS: predniSONE 20 MG TAB PO SCH (11:55)
[2024-05-29] MEDS: D5W/0.45% SODIUM CHLORIDE 1,000 ML IV ONE (11:55)
[2024-05-30] VITALS (15 sets, daily range): BP systolic 134–146; BP diastolic 60–62; TEMP 97.8–97.9; O2SAT 87–99
[2024-05-30 05:56] LABS: EOS % 0.1 % (0.0-3.0); HEMATOCRIT 33.7 % (42.0-52.0); HEMOGLOBIN 9.8 g/dl (13.5-17.5); LYMPH # 0.7 10^3/uL (1.5-5.0); LYMPH % 9.1 % (24.0-44.0); MEAN CORPUSCULAR HEMOGLOBIN 29.7 pg (27.0-33.0); MEAN CORPUSCULAR HGB CONC 29.1 g/dl (32.0-36.5); MEAN CORPUSCULAR VOLUME 102.1 fl (80.0-96.0); MONO # 0.7 10^3/uL (0.0-0.8); NEUTROPHILS % 81.5 % (36.0-66.0); PLATELET COUNT, AUTOMATED 276 10^3/uL (150-450); WHITE BLOOD COUNT 7.4 10^3/uL (4.0-10.0)
[2024-05-30 06:34] LABS: BLOOD UREA NITROGEN 23 MG/DL (9-23); CALCIUM LEVEL 8.5 MG/DL (8.3-10.6); CARBON DIOXIDE LEVEL > 40.0 MMOL/L (20-31); CHLORIDE LEVEL 100 MMOL/L (98-107); CREATININE FOR GFR 0.52 MG/DL (0.70-1.30); GLOMERULAR FILTRATION RATE > 60.0 (>42); GLUCOSE, FASTING 104 MG/DL (74-106); MAGNESIUM LEVEL 1.9 MG/DL (1.8-2.4); POTASSIUM SERUM 3.4 MMOL/L (3.5-5.1); SODIUM LEVEL 148 MMOL/L (136-145)
[2024-05-30] MEDS: D5W 1,000 ML IV SCH (07:17)
[2024-05-30] MEDS: KCL 10MEQ/100ML SWI (KRUN) 10 MEQ in IV 1 EA IV SCH (09:11)
[2024-05-30] MEDS ORDERED: PRED10TA2 PO (10:53)
[2024-05-30] MEDS ORDERED: DOXY-440 PO (10:53)
[2024-05-30 13:04] LABS: BLOOD UREA NITROGEN 22 MG/DL (9-23); CALCIUM LEVEL 8.3 MG/DL (8.3-10.6); CARBON DIOXIDE LEVEL > 40.0 MMOL/L (20-31); CHLORIDE LEVEL 96 MMOL/L (98-107); CREATININE FOR GFR 0.54 MG/DL (0.70-1.30); GLOMERULAR FILTRATION RATE > 60.0 (>42); GLUCOSE, FASTING 175 MG/DL (74-106); POTASSIUM SERUM 3.6 MMOL/L (3.5-5.1); SODIUM LEVEL 146 MMOL/L (136-145)
== END 2024-05-30 14:49 | disposition home health service (06) | DRG 191 ==
LOC: M ED 09:57 → M ED INP 14:56 → M PCU 05-28 01:25
PROVIDERS: ADMIT Student in an Organized Health Care Education/Training Program; ATTEND Student in an Organized Health Care Education/Training Program
DX: J44.1 Chronic obstructive pulmonary disease with (acute) exacerbation (principal); K50.90 Crohn's disease, unspecified, without complications; E87.1 Hypo-osmolality and hyponatremia; E46 Unspecified protein-calorie malnutrition; Z68.1 Body mass index [BMI] 19.9 or less, adult; I10 Essential (primary) hypertension; K22.5 Diverticulum of esophagus, acquired; D50.9 Iron deficiency anemia, unspecified; R91.8 Other nonspecific abnormal finding of lung field; Z66 Do not resuscitate; Z79.82 Long term (current) use of aspirin; Z99.81 Dependence on supplemental oxygen; Z79.899 Other long term (current) drug therapy; Z90.49 Acquired absence of other specified parts of digestive tract

== ENCOUNTER 2024-06-10 08:14 | Observation (INO) | payer MEDICARE, MEDICAID ==
[~2024-06-10] VITALS: Ht 172.7 cm; Wt 45.9 kg
[~2024-06-10 08:14] MED LIST changes: +ASPI81TA26 PO; +DOXY-440 PO; +IBUP200T46 PO; +POTA-141; +POTA20PW PO; +PRED10TA2 PO
[2024-06-10] MEDS: IPRATROPIUM 0.5MG/ALBUTEROL 2.5MG INH SOL UD 3ML (DUONEB) NEB ONE (08:44)
[2024-06-10] MEDS: ALBUTEROL SULFATE 2.5MG/0.5ML INH NEB SOLN INH ONE (08:44)
[2024-06-10 08:51] LABS: ABG BASE EXCESS 16.9 (-2.0-2.0); ABG HCO3 46.9 MMOL/L (22.0-26.0); ABG O2 SATURATION 95.1 % (95.0-99.0); ABG PARTIAL PRESSURE O2 77.2 mmHg (75.0-100.0); ABG STANDARD HCO3 40.8 MMOL/L. (22.0-26.0); ABG TOTAL CO2 49.7 MMOL/L (23.0-31.0)
[2024-06-10] MEDS: NS 500 ML IV ONE (09:17)
[2024-06-10 09:20] LABS: BASO % 0.2 % (0.0-1.0); EOS # 0.1 10^3/uL (0.0-0.5); EOS % 0.4 % (0.0-3.0); HEMATOCRIT 40.7 % (42.0-52.0); LYMPH # 0.6 10^3/uL (1.5-5.0); LYMPH % 2.9 % (24.0-44.0); MEAN CORPUSCULAR HEMOGLOBIN 30.3 pg (27.0-33.0); MEAN CORPUSCULAR HGB CONC 29.5 g/dl (32.0-36.5); MEAN CORPUSCULAR VOLUME 102.8 fl (80.0-96.0); MONO # 0.6 10^3/uL (0.0-0.8); MONO % 2.9 % (2.0-8.0); NEUTROPHILS # 17.7 10^3/uL (1.5-8.5); PLATELET COUNT, AUTOMATED 308 10^3/uL (150-450); RED BLOOD COUNT 3.96 10^6/uL (4.30-6.10)
[2024-06-10 09:50] LABS: PROCALCITONIN 0.06 ng/ml
[2024-06-10 09:57] LABS: ALBUMIN 2.8 G/DL (3.2-5.2); ALKALINE PHOSPHATASE 80 U/L (40-129); ALT/SGPT 15 U/L (7.0-40); AST/SGOT 12 U/L (<34); BILIRUBIN,DIRECT 0.1 MG/DL (<0.4); BILIRUBIN,TOTAL 0.5 MG/DL (0.3-1.2); BLOOD UREA NITROGEN 13 MG/DL (9-23); CALCIUM LEVEL 9.2 MG/DL (8.3-10.6); CARBON DIOXIDE LEVEL > 40.0 MMOL/L (20-31); CHLORIDE LEVEL 95 MMOL/L (98-107); CK-MB VALUE MASS < 1.0 NG/ML (<3.6); CPK CREATINE PHOSPHOKINASE 22 U/L (46-171); CREATININE FOR GFR 0.49 MG/DL (0.70-1.30); GLOMERULAR FILTRATION RATE > 60.0 (>42); GLUCOSE, FASTING 143 MG/DL (74-106); MAGNESIUM LEVEL 1.9 MG/DL (1.8-2.4); MB/CK RELATIVE INDEX 4.54 (< OR =4); POTASSIUM SERUM 3.3 MMOL/L (3.5-5.1); SODIUM LEVEL 146 MMOL/L (136-145); THYROID STIMULATING HORMONE 1.345 uIU/ML (0.55-4.78); THYROXINE (T4) 6.5 UG/DL (4.5-10.9)
[2024-06-10] MEDS ORDERED: ISOVUE-370 76% 100ML VIAL As Ordered ONE (10:04)
[2024-06-10] MEDS: POTASSIUM CHLORIDE 10MEQ SR TABLET PO ONE (10:24)
[2024-06-10] MEDS ORDERED: IBUP200C28 PO (11:02)
[2024-06-10] MEDS ORDERED: PRED10TA2 PO (11:02)
[2024-06-10] MEDS ORDERED: SILD100T PO (11:02)
[2024-06-10 11:03] LABS: CK-MB VALUE MASS 1.6 NG/ML (<3.6)
[2024-06-10] MEDS ORDERED: HOME MED LIST COMPLETE! XX SCH (11:05)
[2024-06-10 11:14] LABS: MB/CK RELATIVE INDEX 6.15 (< OR =4)
[2024-06-10] MEDS ORDERED: ACETAMINOPHEN 325 MG TAB PO PRN (12:50)
[2024-06-10] MEDS ORDERED: IPRATROPIUM 0.5MG/ALBUTEROL 2.5MG INH SOL UD 3ML (DUONEB) NEB PRN (12:50)
[2024-06-10] MEDS: IPRATROPIUM 0.5MG/ALBUTEROL 2.5MG INH SOL UD 3ML (DUONEB) NEB SCH (13:59)
[2024-06-10] MEDS: D5W/0.45% SODIUM CHLORIDE 1,000 ML IV SCH (14:09)
[2024-06-10] MEDS: ASCORBIC ACID 500 MG TAB PO SCH (15:36)
[2024-06-10] MEDS: CYANOCOBALAMIN 500 MCG TAB PO SCH (15:36)
[2024-06-10] MEDS: ASPIRIN 81MG ENTERIC TABLET PO SCH (15:36)
[2024-06-10 15:50] VITALS: BP 173/78; TEMP 97.5; O2SAT 92
[2024-06-10] MEDS: LevoFLOXacin 750 MG TABLET PO ONE (16:21)
[2024-06-10] MEDS: predniSONE 20 MG TAB PO ONE (16:22)
[2024-06-10] MEDS: ADVAIR HFA 115/21MCG INHALER INH SCH (19:22)
[2024-06-10 20:00] VITALS: BP 151/64; TEMP 97.7; O2SAT 98
[2024-06-10 21:46] VITALS: O2SAT 92
[2024-06-10 22:39] VITALS: O2SAT 86
[2024-06-10 22:40] VITALS: O2SAT 94
[2024-06-11 03:40] LABS: MAGNESIUM LEVEL 1.9 MG/DL (1.8-2.4); POTASSIUM SERUM 4.4 MMOL/L (3.5-5.1)
[2024-06-11 04:00] VITALS: BP 136/61; TEMP 97.3; O2SAT 98
[2024-06-11 06:17] LABS: BASO % 0.1 % (0.0-1.0); HEMATOCRIT 32.5 % (42.0-52.0); LYMPH # 0.4 10^3/uL (1.5-5.0); LYMPH % 4.4 % (24.0-44.0); MEAN CORPUSCULAR HEMOGLOBIN 30.4 pg (27.0-33.0); MEAN CORPUSCULAR HGB CONC 29.8 g/dl (32.0-36.5); MEAN CORPUSCULAR VOLUME 101.9 fl (80.0-96.0); MONO # 0.4 10^3/uL (0.0-0.8); MONO % 4.5 % (2.0-8.0); NEUTROPHILS # 8.8 10^3/uL (1.5-8.5); NEUTROPHILS % 90.6 % (36.0-66.0); PLATELET COUNT, AUTOMATED 273 10^3/uL (150-450); RED BLOOD COUNT 3.19 10^6/uL (4.30-6.10); WHITE BLOOD COUNT 9.7 10^3/uL (4.0-10.0)
[2024-06-11 06:32] LABS: HEMOGLOBIN 9.7 g/dl (13.5-17.5)
[2024-06-11 06:39] LABS: BLOOD UREA NITROGEN 14 MG/DL (9-23); CALCIUM LEVEL 8.7 MG/DL (8.3-10.6); CARBON DIOXIDE LEVEL > 40.0 MMOL/L (20-31); CHLORIDE LEVEL 99 MMOL/L (98-107); CREATININE FOR GFR 0.49 MG/DL (0.70-1.30); GLOMERULAR FILTRATION RATE > 60.0 (>42); GLUCOSE, FASTING 135 MG/DL (74-106); MAGNESIUM LEVEL 1.9 MG/DL (1.8-2.4); POTASSIUM SERUM 3.7 MMOL/L (3.5-5.1); SODIUM LEVEL 148 MMOL/L (136-145)
[2024-06-11] MEDS: predniSONE 20 MG TAB PO SCH (09:10)
[2024-06-11 09:13] VITALS: BP 129/58
[2024-06-11] MEDS: ENOXAPARIN 30MG/0.3ML SYRINGE (J1650 PER 10MG) SC SCH (09:14)
[2024-06-11] MEDS ORDERED: ONDANSETRON 4MG ORAL DISINTEGRATING TAB PO PRN (10:40)
[2024-06-11] MEDS: MORPHINE 10MG/0.5ML ORAL CONCENTRATE SOLUTION U/D SL SCH (13:01)
[2024-06-11] MEDS: LevoFLOXacin 750 MG TABLET PO SCH (15:33)
[2024-06-11] MEDS: LORazepam 0.5 MG TAB PO SCH (15:36)
[2024-06-12] MEDS ORDERED: FLUCONAZOLE 100 MG TAB PO ONE (10:35)
[2024-06-12] MEDS ORDERED: FLUCONAZOLE 50MG TABLET PO SCH (12:00)
[2024-06-12] MEDS: FLUCONAZOLE 50MG TABLET PO ONE (13:26)
[2024-06-12] MEDS: FLUCONAZOLE 100 MG TAB PO ONE (13:26)
[2024-06-13] MEDS ORDERED: FLUCONAZOLE 100 MG TAB PO SCH (09:00)
[2024-06-13] MEDS ORDERED: FLUCONAZOLE 50MG TABLET PO SCH (12:00)
[2024-06-13] MEDS: FLUCONAZOLE 40MG/ML ORAL SUSP 35ML **DRAW UP EXACT DOSE PO SCH (16:15)
[2024-06-14] MEDS: LORazepam 1 MG TAB PO PRN (04:41)
[2024-06-14] MEDS: MORPHINE 10MG/0.5ML ORAL CONCENTRATE SOLUTION U/D SL SCH ×2 (12:07→18:06)
[2024-06-14] MEDS: HYOSCYAMINE SULFATE 0.125 MG SUBL TABLET SL SCH (12:07)
[2024-06-14] MEDS: ATROPINE SULFATE 1% OPHTH SOLN 2ML BTL SL PRN (12:08)
[2024-06-14] MEDS: MORPHINE 10MG/0.5ML ORAL CONCENTRATE SOLUTION U/D SL PRN (14:58)
[2024-06-14] MEDS: SCOPOLAMINE 1MG TRANSDERMAL PATCH TOP PRN (18:06)
[2024-06-15] MEDS: HYOSCYAMINE SULFATE 0.125 MG SUBL TABLET PO PRN (02:08)
[2024-06-15] MEDS: MORPHINE 10MG/0.5ML ORAL CONCENTRATE SOLUTION U/D SL PRN (03:34)
== END 2024-06-16 03:03 | disposition expired ==
LOC: M ED 08:14 → EDBD 08:14 → M ED INP 12:48 → M MSPAV 15:47
PROVIDERS: ADMIT Internal Medicine; ATTEND Internal Medicine
DX: J44.9 Chronic obstructive pulmonary disease, unspecified (principal); R91.8 Other nonspecific abnormal finding of lung field; J96.11 Chronic respiratory failure with hypoxia; Z99.81 Dependence on supplemental oxygen; D72.829 Elevated white blood cell count, unspecified; E87.1 Hypo-osmolality and hyponatremia; E87.6 Hypokalemia; B37.9 Candidiasis, unspecified; Z87.01 Personal history of pneumonia (recurrent); I10 Essential (primary) hypertension; J98.4 Other disorders of lung; K50.90 Crohn's disease, unspecified, without complications; K22.5 Diverticulum of esophagus, acquired; R13.10 Dysphagia, unspecified; R63.8 Other symptoms and signs concerning food and fluid intake; E46 Unspecified protein-calorie malnutrition; R06.02 Shortness of breath; M62.50 Muscle wasting and atrophy, not elsewhere classified, unspecified site; Z90.49 Acquired absence of other specified parts of digestive tract; Z96.642 Presence of left artificial hip joint; Z87.891 Personal history of nicotine dependence; Z99.89 Dependence on other enabling machines and devices; Z79.899 Other long term (current) drug therapy; Z79.82 Long term (current) use of aspirin; Z79.52 Long term (current) use of systemic steroids; Z79.51 Long term (current) use of inhaled steroids; Z66 Do not resuscitate; Z51.5 Encounter for palliative care
CPT/HCPCS: 36415; 36600; 71045; 71275; 80047; 80048; 80076; 82550; 82553; 82803; 83605; 83735; 83880; 84132; 84145; 84436; 84443; 84484; 85025; 87040; 87077; 87154; 87186; 87486; 87581; 87633; 87798; 93005; 93041; 94640; 94760; 96372; 99285; G0378; J1650; J7512; Q9967